=== PATIENT | female | born 1950 | race Caucasian/White ===

== ENCOUNTER → 2017-12-16 06:51 | Outpatient (CLI) | payer MEDICARE, SELFPAY ==
[2017-12-16 08:40] LABS: Add Manual Diff / Slide Review NO; Basophils Percent Auto 0.5 % (0-2); Eosinophils Percent Auto 1.3 % (2-4); Hematocrit 43.3 % (36-46); Lymphocytes Percent Auto 36.9 % (25-40); Mean Corpuscular HGB Conc 34.6 % (30-36); Mean Corpuscular Hemoglobin 32.6 PG (26-34); Mean Corpuscular Volume 94.3 fL (80-100); Monocytes Percent Auto 10.1 % (3-14); Neutrophils Absolute Auto 3100 /uL (3000-5900); Neutrophils Percent Auto 51.2 % (50-75); Platelet Count 250 X10^3/uL (150-400); Red Blood Cell Count 4.59 X10^6/uL (4.0-5.2); Red Cell Distribution Width 12.4 % (11.6-14.8)
[2017-12-16 08:59] LABS: Alanine Aminotransferase 51 IU/L (9-52); Albumin 4.7 g/dL (3.5-5.0); Albumin Globulin Ratio 1.6 (1.0-2.8); Alkaline Phosphatase 61 U/L (38-126); Aspartate Aminotransferase 40 IU/L (14-36); BUN Creatinine Ratio 28.6 (6-22); Blood Urea Nitrogen 20 mg/dL (7-17); Calcium 9.3 mg/dL (8.4-10.2); Carbon Dioxide 31 mmol/L (22-32); Chloride 95 mmol/L (98-107); Cholesterol 169 mg/dL (140-199); Estimated Glomerular Filt Rate > 60.0 mL/min (>60); Globulin 2.9 g/dL (1.7-4.1); Glucose 95 mg/dL (80-110); HDL Cholesterol 62 mg/dL (40-60); HEMOLYSIS 50 (0-50); LDL Cholesterol Calculated 83 mg/dL (<100); Potassium 4.6 mmol/L (3.4-5.1); Sodium 136 mmol/L (137-145); Total Protein 7.6 g/dL (6.3-8.2); Triglycerides 121 mg/dL (35-150)
[2017-12-16 09:36] LABS: Thyroid Stimulating Hormone 2.28 uIU/mL (0.47-4.68)
== END ==
PROVIDERS: Visit Provider Family Medicine
DX: E03.9 Hypothyroidism, unspecified (principal); E78.5 Hyperlipidemia, unspecified
CPT/HCPCS: 36415; 80053; 80061; 84443; 85025

== ENCOUNTER → 2018-05-12 13:36 | Outpatient (CLI) | payer MEDICARE, SELFPAY ==
--- NOTE | 2018-05-12 | DI.MG.S_ITS ---
BILATERAL DIGITAL SCREENING MAMMOGRAM 3D/2D WITH CAD WITH AUGMENTATION: 05/12/2018 CLINICAL: Routine screening. Family history of breast cancer. Comparison is made to exams dated: 01/07/2017 mammogram, 01/04/2016 mammogram, and 07/15/2014 mammogram - [facility]. The tissue of both breasts is heterogeneously dense. This may lower the sensitivity of mammography. Current study was also evaluated with a Computer Aided Detection (CAD) system. Bilateral breast implants are stable. There are benign calcifications in both breasts. No significant masses, calcifications, or other findings are seen in either breast. There has been no significant interval change. IMPRESSION: There is no mammographic evidence of malignancy. A 1 year screening mammogram is recommended. This exam was interpreted at Station ID: [id number]. NOTE: For mammograms, a report in lay terms will be sent to the patient. Approximately 15% of breast malignancies will not be visualized mammographically. In the management of a palpable breast mass, a negative mammogram must not discourage biopsy of a clinically suspicious lesion. Electronically Signed By: Dann andrews/grecia:05/12/2018 18:18:15 letter sent: Normal Exam ACR BI-RADS Category 2: Benign Finding(s) 3342F
== END ==
PROVIDERS: Visit Provider Family Medicine
DX: Z12.31 Encounter for screening mammogram for malignant neoplasm of breast (principal); Z80.3 Family history of malignant neoplasm of breast
CPT/HCPCS: 77063; 77067

== ENCOUNTER → 2018-07-14 14:52 | Outpatient (CLI) | payer MEDICARE, SELFPAY ==
--- NOTE | 2018-07-14 14:54 | DI.RAD.S_ITS ---
PROCEDURE: XR KNEE RT 3V INDICATIONS: pain in right knee TECHNIQUE: 3 views of the knee were acquired. COMPARISON: None. FINDINGS: Bones: No fractures or dislocations. No suspicious bony lesions. Soft tissues: No joint effusion. No suspicious soft tissue calcifications. IMPRESSION: No acute radiographic findings. If there is continued pain, followup exam or additional imaging such as MRI or CT could be performed for further assessment. Dictated by: Janki Patel M.D. on 07/14/2018 at 15:52 Approved by: Janki Patel M.D. on 07/14/2018 at 15:52
== END ==
PROVIDERS: PCP Family Medicine; Visit Provider Family Medicine
DX: M25.561 Pain in right knee (principal)
CPT/HCPCS: 73562

== ENCOUNTER 2018-10-07 09:45 | Outpatient (RCR) | payer MEDICARE, SELFPAY ==
--- NOTE | 2018-08-13 10:03 | PT.OIE ---
Current Diagnoses Pain in right knee (08/12/18) Past Medical History (Last Reviewed 07/14/18 @ 13:59 by Kasey Valnetin LPN) Hypertension (Chronic) Hypothyroidism (Chronic ~2012) Osteopenia (Chronic) Chicken pox (Resolved ~1950) Measles (Resolved ~1949) Mumps (Resolved ~1949) Rubella (Resolved ~1949) Past Surgical History (Last Reviewed 07/14/18 @ 13:59 by Kasey Valentin LPN) Anesthesia (Resolved) History of breast augmentation (~02/2011) History of breast augmentation (~06/2012) Status post appendectomy Status post tubal ligation (~1977) Provider Visit Care Team Role Provider Type Giovanni Bustos MD Attending Provider Physician Primary Care Provider Specialty: Family Practice Address: [address] [place] [address] Email: [email or web address] Physical Therapy Initial Evaluation PT-OP-A Visit Information Start: 08/12/18 17:06 Freq: Status: Active Protocol: Document 08/12/18 12:00 (Rec: 08/12/18 17:14 [email or web address]) Out-Patient Physical Therapy Visit Information Visit Information Visit Type Initial Evaluation Visit Start Time 12:00 Visit Stop Time 12:50 Total Visit Minutes 50 Visit Number 1 Number of WELDER JOURNEYMAN Visits 0 Evaluation Information Evaluation Date 08/12/18 PT-OP-B Current Condition Start: 08/12/18 17:06 Freq: Status: Active Protocol: Document 08/12/18 12:00 (Rec: 08/12/18 17:14 [email or web address]) Current Condition History of Current Condition Onset Date 08/12/18 Current Complaints R knee pain, difficulty in walking and hiking, difficulty in turns History of Current Condition Pt c/o new onset of R knee pain couple months ago. Pt describes pain as dull and achy at the medial posterior aspect of R knee. Pt states she had significant increased in R knee pain after she went to hiking in [place] in June. Pt had trouble sleeping that night and her pain was very severe that she went to see her PCP on the following week. X-ray showed -ve findings but did not perform MRI. Pain tends to get worse with trunk and hip rotational movements, going up and down hills and walking uneven surface. Pt denies pain during walking straight line. Prior Treatments and Tests N/A Future Testing and Treatments Planned possible MRI Treatment Goals Patient/Caregiver Goals 1. to be able to hike again without pain 2. to be able to walk >2 miles without knee pain Prior Functional Status Baseline Function- ADL's Independent Baseline Function- Mobility Independent Current Functional Impairments (Reported) Functional Limitations- ADL's slow rotational activities during to pain Functional Limitations- Recreation/ Unale to hike due to knee pain Hobbies Personal Factors Other Personal Factors That May Effect osteopenia Therapy/Recovery PT-OP-C Subjective Start: 08/12/18 17:06 Freq: Status: Active Protocol: Document 08/12/18 12:00 HH (Rec: 08/13/18 09:32 [email or web address]) OP-PT Subjective Patient Comments Patient Comments My pain has been getting better but hiking and turnings make it worse. Patient Questionnaires Lower Extremity Functional Scale LEFS Score 65 LEFS Impairment 1 to 19% Impaired (Score 63-79 ) PT-OP-F Manual Assessment Start: 08/12/18 17:06 Freq: Status: Active Protocol: Document 08/12/18 12:00 HH (Rec: 08/13/18 09:32 [email or web address]) Manual Assessments Soft Tissue Assessment Soft Tissue Mobility Assessment Significant tenderness at medial joint line at R knee, R distal medial HS PT-OP-G Mobility & Gait Start: 08/12/18 17:06 Freq: Status: Active Protocol: Document 08/12/18 12:00 HH (Rec: 08/13/18 09:32 [email or web address]) OP Gait Assessment Assistive Devices Assistive Device None Orthotic/Prosthetic Devices or Brace: No Gait Deviations General Gait Pattern Antalgic Factors Limiting Gait Function Factors Limiting Gait Function Pain Comments Gait Comments 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 Lack of R TKE and heel strike during stance phase. PT-OP-J Posture/Palpation/Skin Start: 08/12/18 17:06 Freq: Status: Active Protocol: Document 08/12/18 12:00 HH (Rec: 08/13/18 09:32 [email or web address]) Posture Evaluation Position Standing Weight Distribution Weight Shifted Left Decreased Wt.Bear on (R) Knee Posture (R) Ext. Tibial Torsion (R) Excess Flexion Patellar Posture (R) Laterally Tilted Ankle/Foot Posture (R) Supinated (R) Calcaneal Inversion (R) Forefoot Eversion Foot Arch (R) High Arch (L) Medium Arch PT-OP-K Range of Motion Start: 08/12/18 17:06 Freq: Status: Active Protocol: Document 08/12/18 12:00 (Rec: 08/13/18 09:32 [email or web address]) Knee Goniometric Range of Motion Knee Measured in Degrees Right Knee ROM WFL Yes Patient Position Supine Flexion Active (degrees) 135 Extension Active (degrees) 2 Left Knee ROM WFL Yes Patient Position Supine Flexion Active (degrees) 135 Extension Active (degrees) 0 Knee ROM Limitations Knee ROM Limitations Soft Tissue Tightness Pain Comments R knee lack of full TKE. active ext = -2 from from full extension PT-OP-L Special Tests Start: 08/12/18 17:06 Freq: Status: Active Protocol: Document 08/12/18 12:00 (Rec: 08/13/18 09:32 [email or web address]) Special Tests Knee Special Tests Varus- 0 Degrees Test Results -ve Valgus- 0 Degrees Test Results -ve Apley's Compression Test Results +VE Comments with tibial external rotation on R knee Katerina Test Test Results +VE Comments with tibial external rotation on R knee Posterior Draw Test Results -ve Anterior Draw Test Results -ve PT-OP-M Strength Start: 08/12/18 17:06 Freq: Status: Active Protocol: Document 08/12/18 12:00 HH (Rec: 08/13/18 09:32 [email or web address]) Hip Strength Hip Manual Muscle Testing Right Flexion (L2) 4+ Good+ Extension (S1) 4+ Good+ Abduction 4 Good Adduction 4+ Good+ Left Flexion (L2) 5 Normal Extension (S1) 5 Normal Abduction 5 Normal Adduction 5 Normal Knee Strength Knee Manual Muscle Testing Right Flexion (S2) 4+ Good+ Extension (L3) 4+ Good+ Left Flexion (S2) 5 Normal Extension (L3) 5 Normal PT-OP-Q Treatments Start: 08/12/18 17:06 Freq: Status: Active Protocol: Document 08/12/18 12:00 HH (Rec: 08/13/18 09:32 [email or web address]) Therapeutic Exercises Supine Exercises lateral HS stretch Side right Equipment Used green band Comments 90 hip flexion and R foot turn in Standing Exercises hip ER Side bilateral Equipment Used green band Comments foot neutral pointing forward, Hip ER Manual Therapy Treatment Soft Tissue Mobilization medial R knee joint line Body Location medial joint line Mobilization Type Cross-Friction Strumming Sustained Pressure Intensity/Depth Moderate Body Position Hooklying lateral HS Body Location R lateral HS Mobilization Type Cross-Friction Strumming Sustained Pressure Intensity/Depth Moderate Body Position Hooklying Joint Mobilizations R tibial IR Joint R tibialfemoral joint Grade III Body Position Supine PT-OP-T Assessment and Plan Start: 08/12/18 17:06 Freq: Status: Active Protocol: Document 08/12/18 12:00 HH (Rec: 08/13/18 09:32 HH [email or web address]) Physical Therapy Assessment Rehab Potential Rehabilitation Potential Good Evaluation Complexity Number of Personal Factors/Comorbidities 1-2 Number of Body Systems Impaired 1-2 Clinical Presentation at Evaluation Stable Impairments Impairments Functional Activities Gait Pain Posture ROM Soft Tissue Mobility Strength Other Concerns Barriers to Rehabilitation possible R medial meniscal tear Goals HEP Impairment pt does not have a HEP Moderate Needs Teacher Goal (LTG) comply to HEP independently with proper techniques and increase her postural awareness (reduce R tibial IR and R foot rim turning machine operator). LTG Duration 8 weeks ROM Impairment decreased R knee extension Moderate Needs Teacher Goal (LTG) To reach R full active knee extension to 0degree during heel strike/ static standing posture LTG Duration 12 weeks LEFS score Impairment lowered LEFS Detention Goal (LTG) to reach 0% impairments on LEFS and able to return to walking 2miles a day/ running once a week LTG Duration 12 weeks pain Impairment increased pain during walking and hiking Short Term Goal (STG) reduce R knee pain by 2 points during walking and hiking STG Duration 6 weeks Detention Goal (LTG) to be pain free during walking and hiking, and return to running LTG Duration 12 weeks Assessment Summary Assessment Pt is a very pleasant 68 yo female presented to clinic with new onset of R knee pain with unknown cause. x-ray showed negative results. Upon assessment, pain reproduced from [facility] test and apley compression test primarily during R tibial internal rotation. Significant tenderness at medial joint line along with distal medial HS. Pt also demonstrated R supinated foot (high arch) and rim turning machine operator at static standing, along with lack of knee extension and increased weight shift to L side of the body. Pt presents possible minor medial meniscal damage on R knee/ degenarative OA changes. Today's tx focused on postural education, R lateral HS stretch, hip ER with neutral tib and foot. Pt will benefit from skilled therapy to address aforementioned impairments by postural training, Quad and gluteal strengthening, increasing foot and tibial mobility and return to sports training. Physical Therapy Plan Frequency and Duration Frequency of Treatment 2x/Week Duration of Treatment 3 months Plan of Care Start Date 08/12/18 Plan of Care End Date 08/12/18 Therapeutic Interventions Therapeutic Interventions Aquatic Therapy Gait Training Home Exercise Program Joint Mobilizations Manual Therapy Neuromuscular Re-education Patient/Caregiver Education Self-Care/Home Management Soft Tissue Mobilization Taping Therapeutic Activities Therapeutic Exercises Modalities Cold Pack/Ice Massage Electric Stimulation Hot Packs Next Visit Focus/Plan Next Note Type Treatment Note Next Visit Plan Review HEP manual therapy (tibial IR, HS stretch, foot mobility) quad strengthening NMES if needed. gait training with heel strike
--- NOTE | 2018-08-13 10:04 | PT.OPPOC ---
Addendum entered and electronically signed by Miranda Ruiz, PT 08/21/18 17:47: incorrect POC end date Original Note: Current Diagnoses Pain in right knee (08/12/18) Provider Visit Care Team Role Provider Type Giovanni Bustos MD Attending Provider Physician Primary Care Provider Specialty: Family Practice Address: [address] [place] [address], [id number] Email: [email or web address] Plan Of Care PT-OP-T Assessment and Plan Start: 08/12/18 17:06 Freq: Status: Active Protocol: Document 08/12/18 12:00 HH (Rec: 08/13/18 09:32 HH [email or web address]) Physical Therapy Assessment Rehab Potential Rehabilitation Potential Good Evaluation Complexity Number of Personal Factors/Comorbidities 1-2 Number of Body Systems Impaired 1-2 Clinical Presentation at Evaluation Stable Impairments Impairments Functional Activities Gait Pain Posture ROM Soft Tissue Mobility Strength Other Concerns Barriers to Rehabilitation possible R medial meniscal tear Goals HEP Impairment pt does not have a HEP Shelter Goal (LTG) comply to HEP independently with proper techniques and increase her postural awareness (reduce R tibial IR and R foot flange turner). LTG Duration 8 weeks ROM Impairment decreased R knee extension Shelter Goal (LTG) To reach R full active knee extension to 0degree during heel strike/ static standing posture LTG Duration 12 weeks LEFS score Impairment lowered LEFS Rail Transportation Tabeler Goal (LTG) to reach 0% impairments on LEFS and able to return to walking 2miles a day/ running once a week LTG Duration 12 weeks pain Impairment increased pain during walking and hiking Short Term Goal (STG) reduce R knee pain by 2 points during walking and hiking STG Duration 6 weeks Rail Transportation Tabeler Goal (LTG) to be pain free during walking and hiking, and return to running LTG Duration 12 weeks Assessment Summary Assessment Pt is a very pleasant 68 yo female presented to clinic with new onset of R knee pain with unknown cause. x-ray showed negative results. Upon assessment, pain reproduced from [facility] test and apley compression test primarily during R tibial internal rotation. Significant tenderness at medial joint line along with distal medial HS. Pt also demonstrated R supinated foot (high arch) and flange turner at static standing, along with lack of knee extension and increased weight shift to L side of the body. Pt presents possible minor medial meniscal damage on R knee/ degenarative OA changes. Today's tx focused on postural education, R lateral HS stretch, hip ER with neutral tib and foot. Pt will benefit from skilled therapy to address aforementioned impairements by postural training, Quad and gluteal strengthening, increasing foot and tibial mobility and return to sports training. Physical Therapy Plan Frequency and Duration Frequency of Treatment 2x/Week Duration of Treatment 3 months Plan of Care Start Date 08/12/18 Plan of Care End Date 08/12/18 Therapeutic Interventions Therapeutic Interventions Aquatic Therapy Gait Training Home Exercise Program Joint Mobilizations Manual Therapy Neuromuscular Re-education Patient/Caregiver Education Self-Care/Home Management Soft Tissue Mobilization Taping Therapeutic Activities Therapeutic Exercises Modalities Cold Pack/Ice Massage Electric Stimulation Hot Packs Next Visit Focus/Plan Next Note Type Treatment Note Next Visit Plan Review HEP manual therapy (tibial IR, HS stretch, foot mobility) quad strengthening NMES if needed. gait training with heel strike Plan of Care Dates Plan of Care Start Date 08/12/18 Plan of Care End Date 08/12/18 Please Sign and Return: I have reviewed this Plan of Care and certify that the skilled therapy services above are required to meet the patient?s needs. Physician Signature Date Printed Name and Credentials Clinical Instructor Signature Printed Name and Credentials
--- NOTE | 2018-08-13 10:05 | PT.OPPOC ---
*Live* [facility] Alice Mauricio [facility] : 1950 [id number] 08/13/18 10:04 - PT OP Plan of Care Note by Miranda Ruiz PT Acct Num: [id number] : 1950 Patient Age: 68 Addendum entered and electronically signed by Miranda Ruiz PT 08/21/18 17:47: incorrect POC end date Original Note: Current Diagnoses Pain in right knee (08/12/18) Provider Visit Care Team Role Provider Type Giovanni Bustos MD Attending Provider Physician Primary Care Provider Specialty: Family Practice Address: [address] [place] [address] Email: [email or web address] Plan Of Care PT-OP-T Assessment and Plan Start: 08/12/18 17:06 Freq: Status: Active Protocol: Document 08/12/18 12:00 (Rec: 08/13/18 09:32 [email or web address]) Physical Therapy Assessment Rehab Potential Rehabilitation Potential Good Evaluation Complexity Number of Personal Factors/Comorbidities 1-2 Number of Body Systems Impaired 1-2 Clinical Presentation at Evaluation Stable Impairments Impairments Functional Activities Gait Pain Posture ROM Soft Tissue Mobility Strength Other Concerns Barriers to Rehabilitation possible R medial meniscal tear Goals HEP Impairment pt does not have a HEP Installer Apprentice Goal (LTG) comply to HEP independently with proper techniques and increase her postural awareness (reduce R tibial IR and R foot apple turner). LTG Duration 8 weeks ROM Impairment decreased R knee extension Installer Apprentice Goal (LTG) To reach R full active knee extension to 0degree during heel strike/ static standing posture LTG Duration 12 weeks LEFS score Impairment lowered LEFS Installer Apprentice Goal (LTG) to reach 0% impairments on LEFS and able to return to walking 2miles a day/ running once a week LTG Duration 12 weeks pain Impairment increased pain during walking and hiking Short Term Goal (STG) reduce R knee pain by 2 points during walking and hiking STG Duration 6 weeks Installer Apprentice Goal (LTG) to be pain free during walking and hiking, and return to running LTG Duration 12 weeks Assessment Summary Assessment Pt is a very pleasant 68 yo female presented to clinic with new onset of R knee pain with unknown cause. x-ray showed negative results. Upon assessment, pain reproduced from [facility] test and apley compression test primarily during R tibial internal rotation. Significant tenderness at medial joint line along with distal medial HS. Pt also demonstrated R supinated foot (high arch) and apple turner at static standing, along with lack of knee extension and increased weight shift to L side of the body. Pt presents possible minor medial meniscal damage on R knee/ degenarative OA changes. Today's tx focused on postural education, R lateral HS stretch, hip ER with neutral tib and foot. Pt will benefit from skilled therapy to address aforementioned impairements by postural training, Quad and gluteal strengthening, increasing foot and tibial mobility and return to sports training. Physical Therapy Plan Frequency and Duration Frequency of Treatment 2x/Week Duration of Treatment 3 months Plan of Care Start Date 08/12/18 Plan of Care End Date 08/12/18 Therapeutic Interventions Therapeutic Interventions Aquatic Therapy Gait Training Home Exercise Program Joint Mobilizations Manual Therapy Neuromuscular Re-education Patient/Caregiver Education Self-Care/Home Management Soft Tissue Mobilization Taping Therapeutic Activities Therapeutic Exercises Modalities Cold Pack/Ice Massage Electric Stimulation Hot Packs Next Visit Focus/Plan Next Note Type Treatment Note Next Visit Plan Review HEP manual therapy (tibial IR, HS stretch, foot mobility) quad strengthening NMES if needed. gait training with heel strike Plan of Care Dates Plan of Care Start Date 08/12/18 Plan of Care End Date 10/12/18 Please Sign and Return: I have reviewed this Plan of Care and certify that the skilled therapy services above are required to meet the patient?s needs. Physician Signature Date Printed Name and Credentials Clinical Instructor Signature Printed Name and Credentials Initialized on 08/13/18 10:04 - END OF NOTE
--- NOTE | 2018-08-19 13:20 | PT.OTN ---
Current Diagnoses Pain in right knee (08/19/18) Physical Therapy Treatment Note PT-OP-A Visit Information Start: 08/12/18 17:06 Freq: Status: Active Protocol: Document 08/19/18 11:15 HH (Rec: 08/19/18 13:20 [email or web address]) Out-Patient Physical Therapy Visit Information Visit Information Visit Type Treatment Note Visit Start Time 11:15 Visit Stop Time 12:05 Total Visit Minutes 50 Visit Number 2 Number of ASSISTED LIVING COORDINATOR Visits 0 PT-OP-B Current Condition Start: 08/12/18 17:06 Freq: Status: Active Protocol: Document 08/12/18 12:00 HH (Rec: 08/12/18 17:14 [email or web address]) Current Condition History of Current Condition Onset Date 08/12/18 Current Complaints R knee pain, difficulty in walking and hiking, difficulty in turns History of Current Condition Pt c/o new onset of R knee pain couple months ago. Pt describes pain as dull and achy at the medial posterior aspect of R knee. Pt states she had significant increased in R knee pain after she went to hiking in [place] in June. Pt had trouble sleeping that night and her pain was very severe that she went to see her PCP on the following week. X-ray showed -ve findings but did not perform MRI. Pain tends to get worse with trunk and hip rotational movements, going up and down hills and walking uneven surface. Pt denies pain during walking straight line. Prior Treatments and Tests N/A Future Testing and Treatments Planned possible MRI Treatment Goals Patient/Caregiver Goals 1. to be able to hike again without pain 2. to be able to walk >2 miles without knee pain Prior Functional Status Baseline Function- ADL's Independent Baseline Function- Mobility Independent Current Functional Impairments (Reported) Functional Limitations- ADL's slow rotational activities during to pain Functional Limitations- Recreation/ Un[place] to hike due to knee pain Hobbies Personal Factors Other Personal Factors That May Effect osteopenia Therapy/Recovery PT-OP-C Subjective Start: 08/12/18 17:06 Freq: Status: Active Protocol: Document 08/19/18 11:15 HH (Rec: 08/19/18 13:20 [email or web address]) OP-PT Subjective Patient Comments Patient Comments I've been doing my ex and aware of my foot position. I havent had any pain so far. Patient Reported Progress Improving PT-OP-F Manual Assessment Start: 08/12/18 17:06 Freq: Status: Active Protocol: Document 08/12/18 12:00 HH (Rec: 08/13/18 09:32 [email or web address]) Manual Assessments Soft Tissue Assessment Soft Tissue Mobility Assessment Significant tenderness at medial joint line at R knee, R distal medial HS PT-OP-G Mobility & Gait Start: 08/12/18 17:06 Freq: Status: Active Protocol: Document 08/12/18 12:00 HH (Rec: 08/13/18 09:32 [email or web address]) OP Gait Assessment Assistive Devices Assistive Device None Orthotic/Prosthetic Devices or Brace: No Gait Deviations General Gait Pattern Antalgic Factors Limiting Gait Function Factors Limiting Gait Function Pain Comments Gait Comments 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 Lack of R TKE and heel strike during stance phase. PT-OP-J Posture/Palpation/Skin Start: 08/12/18 17:06 Freq: Status: Active Protocol: Document 08/12/18 12:00 (Rec: 08/13/18 09:32 [email or web address]) Posture Evaluation Position Standing Weight Distribution Weight Shifted Left Decreased Wt.Bear on (R) Knee Posture (R) Ext. Tibial Torsion (R) Excess Flexion Patellar Posture (R) Laterally Tilted Ankle/Foot Posture (R) Supinated (R) Calcaneal Inversion (R) Forefoot Eversion Foot Arch (R) High Arch (L) Medium Arch PT-OP-K Range of Motion Start: 08/12/18 17:06 Freq: Status: Active Protocol: Document 08/12/18 12:00 HH (Rec: 08/13/18 09:32 [email or web address]) Knee Goniometric Range of Motion Knee Measured in Degrees Right Knee ROM WFL Yes Patient Position Supine Flexion Active (degrees) 135 Extension Active (degrees) 2 Left Knee ROM WFL Yes Patient Position Supine Flexion Active (degrees) 135 Extension Active (degrees) 0 Knee ROM Limitations Knee ROM Limitations Soft Tissue Tightness Pain Comments R knee lack of full TKE. active ext = -2 from from full extension PT-OP-L Special Tests Start: 08/12/18 17:06 Freq: Status: Active Protocol: Document 08/12/18 12:00 HH (Rec: 08/13/18 09:32 [email or web address]) Special Tests Knee Special Tests Varus- 0 Degrees Test Results -ve Valgus- 0 Degrees Test Results -ve Apley's Compression Test Results +VE Comments with tibial external rotation on R knee Katerina Test Test Results +VE Comments with tibial external rotation on R knee Posterior Draw Test Results -ve Anterior Draw Test Results -ve PT-OP-M Strength Start: 08/12/18 17:06 Freq: Status: Active Protocol: Document 08/12/18 12:00 HH (Rec: 08/13/18 09:32 [email or web address]) Hip Strength Hip Manual Muscle Testing Right Flexion (L2) 4+ Good+ Extension (S1) 4+ Good+ Abduction 4 Good Adduction 4+ Good+ Left Flexion (L2) 5 Normal Extension (S1) 5 Normal Abduction 5 Normal Adduction 5 Normal Knee Strength Knee Manual Muscle Testing Right Flexion (S2) 4+ Good+ Extension (L3) 4+ Good+ Left Flexion (S2) 5 Normal Extension (L3) 5 Normal PT-OP-Q Treatments Start: 08/12/18 17:06 Freq: Status: Active Protocol: Document 08/19/18 11:15 HH (Rec: 08/19/18 13:20 [email or web address]) Therapeutic Exercises Supine Exercises lateral HS stretch Side right Equipment Used green band Comments 90 hip flexion and R foot turn in Sitting Exercises hip ER and IR Side bilateral Reps/Minutes 20 x2 Comments neutral feet with hip ER and IR Standing Exercises single leg stance hip ER Side right Reps/Minutes 10 x3 Comments neutral R foot (not moving) with hip ER hip ER Side bilateral Equipment Used green band Reps/Minutes 10 x3 Comments foot neutral pointing forward, Hip ER Manual Therapy Treatment Soft Tissue Mobilization R ant tib and calf Mobilization Type Cross-Friction Sustained Pressure Trigger Point Release Intensity/Depth Moderate Body Position Supine Comments along with ankle passive PF,DF INV medial R knee joint line Body Location medial joint line Mobilization Type Cross-Friction Strumming Sustained Pressure Intensity/Depth Moderate Body Position Hooklying lateral HS Body Location R lateral HS Mobilization Type Cross-Friction Strumming Sustained Pressure Intensity/Depth Moderate Body Position Hooklying Joint Mobilizations R ankle pronation Joint talocural and calcaneal Grade IV Body Position Sitting Comments with tibial IR R tibial IR Joint R tibialfemoral joint Grade III Body Position Sitting PT-OP-T Assessment and Plan Start: 08/12/18 17:06 Freq: Status: Active Protocol: Document 08/19/18 11:15 HH (Rec: 08/19/18 13:20 HH [email or web address]) Physical Therapy Assessment Assessment Summary Assessment Pt presents reduced knee pain and denies knee pain during rotational movements today. pt cont presents high arch on R foot with R tibal ER and hip ER. Education on resting posture. Today tx focused on R foot pronation, tibial IR, hip IR and overall ankle mobility. Physical Therapy Plan Next Visit Focus/Plan Next Note Type Treatment Note Next Visit Plan Review HEP manual therapy (tibial IR, HS stretch, foot mobility) foot pronation mobility quad strengthening (TKE) NMES if needed. gait training with heel strike
--- NOTE | 2018-08-21 17:57 | PT.OTN ---
Addendum entered and electronically signed by Miranda Ruiz PT 08/21/18 18:13: incorrect visit time Original Note: Current Diagnoses Pain in right knee (08/21/18) Physical Therapy Treatment Note PT-OP-A Visit Information Start: 08/12/18 17:06 Freq: Status: Active Protocol: Document 08/21/18 14:30 HH (Rec: 08/21/18 17:57 HH [email or web address]) Out-Patient Physical Therapy Visit Information Visit Information Visit Type Treatment Note Visit Start Time 14:30 Visit Stop Time 15:15 Total Visit Minutes 45 Visit Number 3 Number of SUPERVISOR [employer] Visits 0 PT-OP-B Current Condition Start: 08/12/18 17:06 Freq: Status: Active Protocol: Document 08/12/18 12:00 HH (Rec: 08/12/18 17:14 HH [email or web address]) Current Condition History of Current Condition Onset Date 08/12/18 Current Complaints R knee pain, difficulty in walking and hiking, difficulty in turns History of Current Condition Pt c/o new onset of R knee pain couple months ago. Pt describes pain as dull and achy at the medial posterior aspect of R knee. Pt states she had significant increased in R knee pain after she went to hiking in [place] in June. Pt had trouble sleeping that night and her pain was very severe that she went to see her PCP on the following week. X-ray showed -ve findings but did not perform MRI. Pain tends to get worse with trunk and hip rotational movements, going up and down hills and walking uneven surface. Pt denies pain during walking straight line. Prior Treatments and Tests N/A Future Testing and Treatments Planned possible MRI Treatment Goals Patient/Caregiver Goals 1. to be able to hike again without pain 2. to be able to walk >2 miles without knee pain Prior Functional Status Baseline Function- ADL's Independent Baseline Function- Mobility Independent Current Functional Impairments (Reported) Functional Limitations- ADL's slow rotational activities during to pain Functional Limitations- Recreation/ [place] to hike due to knee pain Hobbies Personal Factors Other Personal Factors That May Effect osteopenia Therapy/Recovery PT-OP-C Subjective Start: 08/12/18 17:06 Freq: Status: Active Protocol: Document 08/21/18 14:30 HH (Rec: 08/21/18 17:57 HH [email or web address]) OP-PT Subjective Patient Comments Patient Comments I walked 2 miles today and climbed some stairs so my knee is kind of sore but didnt hurt. I've been doing my HEP and turning doesnt hurt as much now. PT-OP-F Manual Assessment Start: 08/12/18 17:06 Freq: Status: Active Protocol: Document 08/12/18 12:00 HH (Rec: 08/13/18 09:32 [email or web address]) Manual Assessments Soft Tissue Assessment Soft Tissue Mobility Assessment Significant tenderness at medial joint line at R knee, R distal medial HS PT-OP-G Mobility & Gait Start: 08/12/18 17:06 Freq: Status: Active Protocol: Document 08/12/18 12:00 HH (Rec: 08/13/18 09:32 [email or web address]) OP Gait Assessment Assistive Devices Assistive Device None Orthotic/Prosthetic Devices or Brace: No Gait Deviations General Gait Pattern Antalgic Factors Limiting Gait Function Factors Limiting Gait Function Pain Comments Gait Comments 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 Lack of R TKE and heel strike during stance phase. PT-OP-J Posture/Palpation/Skin Start: 08/12/18 17:06 Freq: Status: Active Protocol: Document 08/12/18 12:00 HH (Rec: 08/13/18 09:32 [email or web address]) Posture Evaluation Position Standing Weight Distribution Weight Shifted Left Decreased Wt.Bear on (R) Knee Posture (R) Ext. Tibial Torsion (R) Excess Flexion Patellar Posture (R) Laterally Tilted Ankle/Foot Posture (R) Supinated (R) Calcaneal Inversion (R) Forefoot Eversion Foot Arch (R) High Arch (L) Medium Arch PT-OP-K Range of Motion Start: 08/12/18 17:06 Freq: Status: Active Protocol: Document 08/12/18 12:00 HH (Rec: 08/13/18 09:32 [email or web address]) Knee Goniometric Range of Motion Knee Measured in Degrees Right Knee ROM WFL Yes Patient Position Supine Flexion Active (degrees) 135 Extension Active (degrees) 2 Left Knee ROM WFL Yes Patient Position Supine Flexion Active (degrees) 135 Extension Active (degrees) 0 Knee ROM Limitations Knee ROM Limitations Soft Tissue Tightness Pain Comments R knee lack of full TKE. active ext = -2 from from full extension PT-OP-L Special Tests Start: 08/12/18 17:06 Freq: Status: Active Protocol: Document 08/12/18 12:00 HH (Rec: 08/13/18 09:32 [email or web address]) Special Tests Knee Special Tests Varus- 0 Degrees Test Results -ve Valgus- 0 Degrees Test Results -ve Apley's Compression Test Results +VE Comments with tibial external rotation on R knee Katerina Test Test Results +VE Comments with tibial external rotation on R knee Posterior Draw Test Results -ve Anterior Draw Test Results -ve PT-OP-M Strength Start: 08/12/18 17:06 Freq: Status: Active Protocol: Document 08/12/18 12:00 HH (Rec: 08/13/18 09:32 [email or web address]) Hip Strength Hip Manual Muscle Testing Right Flexion (L2) 4+ Good+ Extension (S1) 4+ Good+ Abduction 4 Good Adduction 4+ Good+ Left Flexion (L2) 5 Normal Extension (S1) 5 Normal Abduction 5 Normal Adduction 5 Normal Knee Strength Knee Manual Muscle Testing Right Flexion (S2) 4+ Good+ Extension (L3) 4+ Good+ Left Flexion (S2) 5 Normal Extension (L3) 5 Normal PT-OP-Q Treatments Start: 08/12/18 17:06 Freq: Status: Active Protocol: Document 08/21/18 14:30 HH (Rec: 08/21/18 17:57 HH [email or web address]) Therapeutic Exercises Supine Exercises lateral HS stretch Side right Equipment Used green band Comments 90 hip flexion and R foot turn in Sitting Exercises hip ER and IR Side bilateral Reps/Minutes 20 x2 Comments neutral feet with hip ER and IR Standing Exercises standing TKE Side right Equipment Used level 6 band Reps/Minutes 20 x 2 RDL Side right Reps/Minutes 10 secs x 10 Comments with neutral foot and knee, slight hip and knee bent single leg stance hip ER Side right Reps/Minutes 10 x3 Comments neutral R foot (not moving) with hip ER Manual Therapy Treatment Soft Tissue Mobilization R ant tib and calf Mobilization Type Cross-Friction Sustained Pressure Trigger Point Release Intensity/Depth Moderate Body Position Supine Comments along with ankle passive PF,DF INV medial R knee joint line Body Location medial joint line Mobilization Type Cross-Friction Strumming Sustained Pressure Intensity/Depth Moderate Body Position Hooklying lateral HS Body Location R lateral HS Mobilization Type Cross-Friction Strumming Sustained Pressure Intensity/Depth Moderate Body Position Hooklying Neuro Re-Education Treatment Balance Activities RDL with cone reach Details cone reach on table Reps/Duration 10 x 2 Comments single leg stance with knee and hip bent , neutral foot and knee to reach for cone on table PT-OP-T Assessment and Plan Start: 08/12/18 17:06 Freq: Status: Active Protocol: Document 08/21/18 14:30 HH (Rec: 08/21/18 17:57 HH [email or web address]) Physical Therapy Assessment Assessment Summary Assessment tenderness noted on R medial calf and post tib. Pt's R foot position is still inverted at rest possibly due to weakness from peroneals/tightness on invertors. RDL added to HEP to improve ankle and knee stability. Physical Therapy Plan Next Visit Focus/Plan Next Note Type Treatment Note Next Visit Plan Review HEP (RDL) manual therapy (tibial IR, HS stretch, foot mobility) foot pronation mobility quad strengthening (TKE) single leg stability and strengthening
--- NOTE | 2018-08-21 18:14 | PT.OTN ---
Current Diagnoses Pain in right knee (08/21/18) Physical Therapy Treatment Note PT-OP-A Visit Information Start: 08/12/18 17:06 Freq: Status: Active Protocol: Document 08/21/18 15:15 HH (Rec: 08/21/18 17:57 [email or web address]) Out-Patient Physical Therapy Visit Information Visit Information Visit Type Treatment Note Visit Start Time 15:15 Visit Stop Time 16:00 Total Visit Minutes 45 Visit Number 3 Number of GAS WELL PUMPER Visits 0 PT-OP-B Current Condition Start: 08/12/18 17:06 Freq: Status: Active Protocol: Document 08/12/18 12:00 HH (Rec: 08/12/18 17:14 [email or web address]) Current Condition History of Current Condition Onset Date 08/12/18 Current Complaints R knee pain, difficulty in walking and hiking, difficulty in turns History of Current Condition Pt c/o new onset of R knee pain couple months ago. Pt describes pain as dull and achy at the medial posterior aspect of R knee. Pt states she had significant increased in R knee pain after she went to hiking in [place] in June. Pt had trouble sleeping that night and her pain was very severe that she went to see her PCP on the following week. X-ray showed -ve findings but did not perform MRI. Pain tends to get worse with trunk and hip rotational movements, going up and down hills and walking uneven surface. Pt denies pain during walking straight line. Prior Treatments and Tests N/A Future Testing and Treatments Planned possible MRI Treatment Goals Patient/Caregiver Goals 1. to be able to hike again without pain 2. to be able to walk >2 miles without knee pain Prior Functional Status Baseline Function- ADL's Independent Baseline Function- Mobility Independent Current Functional Impairments (Reported) Functional Limitations- ADL's slow rotational activities during to pain Functional Limitations- Recreation/ [place] to hike due to knee pain Hobbies Personal Factors Other Personal Factors That May Effect osteopenia Therapy/Recovery PT-OP-C Subjective Start: 08/12/18 17:06 Freq: Status: Active Protocol: Document 08/21/18 15:15 HH (Rec: 08/21/18 17:57 [email or web address]) OP-PT Subjective Patient Comments Patient Comments I walked 2 miles today and climbed some stairs so my knee is kind of sore but didnt hurt. I've been doing my HEP and turning doesnt hurt as much now. PT-OP-F Manual Assessment Start: 08/12/18 17:06 Freq: Status: Active Protocol: Document 08/12/18 12:00 HH (Rec: 08/13/18 09:32 [email or web address]) Manual Assessments Soft Tissue Assessment Soft Tissue Mobility Assessment Significant tenderness at medial joint line at R knee, R distal medial HS PT-OP-G Mobility & Gait Start: 08/12/18 17:06 Freq: Status: Active Protocol: Document 08/12/18 12:00 HH (Rec: 08/13/18 09:32 [email or web address]) OP Gait Assessment Assistive Devices Assistive Device None Orthotic/Prosthetic Devices or Brace: No Gait Deviations General Gait Pattern Antalgic Factors Limiting Gait Function Factors Limiting Gait Function Pain Comments Gait Comments 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 Lack of R TKE and heel strike during stance phase. PT-OP-J Posture/Palpation/Skin Start: 08/12/18 17:06 Freq: Status: Active Protocol: Document 08/12/18 12:00 (Rec: 08/13/18 09:32 [email or web address]) Posture Evaluation Position Standing Weight Distribution Weight Shifted Left Decreased Wt.Bear on (R) Knee Posture (R) Ext. Tibial Torsion (R) Excess Flexion Patellar Posture (R) Laterally Tilted Ankle/Foot Posture (R) Supinated (R) Calcaneal Inversion (R) Forefoot Eversion Foot Arch (R) High Arch (L) Medium Arch PT-OP-K Range of Motion Start: 08/12/18 17:06 Freq: Status: Active Protocol: Document 08/12/18 12:00 (Rec: 08/13/18 09:32 [email or web address]) Knee Goniometric Range of Motion Knee Measured in Degrees Right Knee ROM WFL Yes Patient Position Supine Flexion Active (degrees) 135 Extension Active (degrees) 2 Left Knee ROM WFL Yes Patient Position Supine Flexion Active (degrees) 135 Extension Active (degrees) 0 Knee ROM Limitations Knee ROM Limitations Soft Tissue Tightness Pain Comments R knee lack of full TKE. active ext = -2 from from full extension PT-OP-L Special Tests Start: 08/12/18 17:06 Freq: Status: Active Protocol: Document 08/12/18 12:00 HH (Rec: 08/13/18 09:32 [email or web address]) Special Tests Knee Special Tests Varus- 0 Degrees Test Results -ve Valgus- 0 Degrees Test Results -ve Apley's Compression Test Results +VE Comments with tibial external rotation on R knee Katerina Test Test Results +VE Comments with tibial external rotation on R knee Posterior Draw Test Results -ve Anterior Draw Test Results -ve PT-OP-M Strength Start: 08/12/18 17:06 Freq: Status: Active Protocol: Document 08/12/18 12:00 HH (Rec: 08/13/18 09:32 HH [email or web address]) Hip Strength Hip Manual Muscle Testing Right Flexion (L2) 4+ Good+ Extension (S1) 4+ Good+ Abduction 4 Good Adduction 4+ Good+ Left Flexion (L2) 5 Normal Extension (S1) 5 Normal Abduction 5 Normal Adduction 5 Normal Knee Strength Knee Manual Muscle Testing Right Flexion (S2) 4+ Good+ Extension (L3) 4+ Good+ Left Flexion (S2) 5 Normal Extension (L3) 5 Normal PT-OP-Q Treatments Start: 08/12/18 17:06 Freq: Status: Active Protocol: Document 08/21/18 15:15 HH (Rec: 08/21/18 17:57 HH [email or web address]) Therapeutic Exercises Supine Exercises lateral HS stretch Side right Equipment Used green band Comments 90 hip flexion and R foot turn in Sitting Exercises hip ER and IR Side bilateral Reps/Minutes 20 x2 Comments neutral feet with hip ER and IR Standing Exercises standing TKE Side right Equipment Used level 6 band Reps/Minutes 20 x 2 RDL Side right Reps/Minutes 10 secs x 10 Comments with neutral foot and knee, slight hip and knee bent single leg stance hip ER Side right Reps/Minutes 10 x3 Comments neutral R foot (not moving) with hip ER Manual Therapy Treatment Soft Tissue Mobilization R ant tib and calf Mobilization Type Cross-Friction Sustained Pressure Trigger Point Release Intensity/Depth Moderate Body Position Supine Comments along with ankle passive PF,DF INV medial R knee joint line Body Location medial joint line Mobilization Type Cross-Friction Strumming Sustained Pressure Intensity/Depth Moderate Body Position Hooklying lateral HS Body Location R lateral HS Mobilization Type Cross-Friction Strumming Sustained Pressure Intensity/Depth Moderate Body Position Hooklying Neuro Re-Education Treatment Balance Activities RDL with cone reach Details cone reach on table Reps/Duration 10 x 2 Comments single leg stance with knee and hip bent , neutral foot and knee to reach for cone on table PT-OP-T Assessment and Plan Start: 08/12/18 17:06 Freq: Status: Active Protocol: Document 08/21/18 15:15 HH (Rec: 08/21/18 17:57 HH [email or web address]) Physical Therapy Assessment Assessment Summary Assessment tenderness noted on R medial calf and post tib. Pt's R foot position is still inverted at rest possibly due to weakness from peroneals/tightness on invertors. RDL added to HEP to improve ankle and knee stability. Physical Therapy Plan Next Visit Focus/Plan Next Note Type Treatment Note Next Visit Plan Review HEP (RDL) manual therapy (tibial IR, HS stretch, foot mobility) foot pronation mobility quad strengthening (TKE) single leg stability and strengthening
--- NOTE | 2018-08-26 16:06 | PT.OTN ---
Current Diagnoses Pain in right knee (08/26/18) Physical Therapy Treatment Note PT-OP-A Visit Information Start: 08/12/18 17:06 Freq: Status: Active Protocol: Document 08/26/18 11:15 GGD (Rec: 08/26/18 16:05 GGD [email or web address]) Out-Patient Physical Therapy Visit Information Visit Information Visit Type Treatment Note Visit Start Time 11:15 Visit Stop Time 12:00 Total Visit Minutes 45 Visit Number 4 Number of METALSMITH APPRENTICE Visits 1 Evaluation Information Evaluation Date 08/12/18 PT-OP-B Current Condition Start: 08/12/18 17:06 Freq: Status: Active Protocol: Document 08/12/18 12:00 HH (Rec: 08/12/18 17:14 HH [email or web address]) Current Condition History of Current Condition Onset Date 08/12/18 Current Complaints R knee pain, difficulty in walking and hiking, difficulty in turns History of Current Condition Pt c/o new onset of R knee pain couple months ago. Pt describes pain as dull and achy at the medial posterior aspect of R knee. Pt states she had significant increased in R knee pain after she went to [employer] in [place] in June. Pt had trouble sleeping that night and her pain was very severe that she went to see her PCP on the following week. X-ray showed -ve findings but did not perform MRI. Pain tends to get worse with trunk and hip rotational movements, going up and down hills and walking uneven surface. Pt denies pain during walking straight line. Prior Treatments and Tests N/A Future Testing and Treatments Planned possible MRI Treatment Goals Patient/Caregiver Goals 1. to be able to hike again without pain 2. to be able to walk >2 miles without knee pain Prior Functional Status Baseline Function- ADL's Independent Baseline Function- Mobility Independent Current Functional Impairments (Reported) Functional Limitations- ADL's slow rotational activities during to pain Functional Limitations- Recreation/ Unale to hike due to knee pain Hobbies Personal Factors Other Personal Factors That May Effect osteopenia Therapy/Recovery PT-OP-C Subjective Start: 08/12/18 17:06 Freq: Status: Active Protocol: Document 08/26/18 11:15 GGD (Rec: 08/26/18 16:05 GGD [email or web address]) OP-PT Subjective Patient Comments Patient Comments Pt states that her knee is feeling better. PT-OP-F Manual Assessment Start: 08/12/18 17:06 Freq: Status: Active Protocol: Document 08/12/18 12:00 HH (Rec: 08/13/18 09:32 [email or web address]) Manual Assessments Soft Tissue Assessment Soft Tissue Mobility Assessment Significant tenderness at medial joint line at R knee, R distal medial HS PT-OP-G Mobility & Gait Start: 08/12/18 17:06 Freq: Status: Active Protocol: Document 08/12/18 12:00 HH (Rec: 08/13/18 09:32 [email or web address]) OP Gait Assessment Assistive Devices Assistive Device None Orthotic/Prosthetic Devices or Brace: No Gait Deviations General Gait Pattern Antalgic Factors Limiting Gait Function Factors Limiting Gait Function Pain Comments Gait Comments Pt presents R knee and foot route re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 Lack of R TKE and heel strike during stance phase. PT-OP-J Posture/Palpation/Skin Start: 08/12/18 17:06 Freq: Status: Active Protocol: Document 08/12/18 12:00 (Rec: 08/13/18 09:32 [email or web address]) Posture Evaluation Position Standing Weight Distribution Weight Shifted Left Decreased Wt.Bear on (R) Knee Posture (R) Ext. Tibial Torsion (R) Excess Flexion Patellar Posture (R) Laterally Tilted Ankle/Foot Posture (R) Supinated (R) Calcaneal Inversion (R) Forefoot Eversion Foot Arch (R) High Arch (L) Medium Arch PT-OP-K Range of Motion Start: 08/12/18 17:06 Freq: Status: Active Protocol: Document 08/12/18 12:00 HH (Rec: 08/13/18 09:32 [email or web address]) Knee Goniometric Range of Motion Knee Measured in Degrees Right Knee ROM WFL Yes Patient Position Supine Flexion Active (degrees) 135 Extension Active (degrees) 2 Left Knee ROM WFL Yes Patient Position Supine Flexion Active (degrees) 135 Extension Active (degrees) 0 Knee ROM Limitations Knee ROM Limitations Soft Tissue Tightness Pain Comments R knee lack of full TKE. active ext = -2 from from full extension PT-OP-L Special Tests Start: 08/12/18 17:06 Freq: Status: Active Protocol: Document 08/12/18 12:00 HH (Rec: 08/13/18 09:32 [email or web address]) Special Tests Knee Special Tests Varus- 0 Degrees Test Results -ve Valgus- 0 Degrees Test Results -ve Apley's Compression Test Results +VE Comments with tibial external rotation on R knee Katerina Test Test Results +VE Comments with tibial external rotation on R knee Posterior Draw Test Results -ve Anterior Draw Test Results -ve PT-OP-M Strength Start: 08/12/18 17:06 Freq: Status: Active Protocol: Document 08/12/18 12:00 (Rec: 08/13/18 09:32 [email or web address]) Hip Strength Hip Manual Muscle Testing Right Flexion (L2) 4+ Good+ Extension (S1) 4+ Good+ Abduction 4 Good Adduction 4+ Good+ Left Flexion (L2) 5 Normal Extension (S1) 5 Normal Abduction 5 Normal Adduction 5 Normal Knee Strength Knee Manual Muscle Testing Right Flexion (S2) 4+ Good+ Extension (L3) 4+ Good+ Left Flexion (S2) 5 Normal Extension (L3) 5 Normal PT-OP-Q Treatments Start: 08/12/18 17:06 Freq: Status: Active Protocol: Document 08/26/18 11:15 GGD (Rec: 08/26/18 16:05 GGD [email or web address]) Therapeutic Exercises Supine Exercises lateral HS stretch Side right Equipment Used green band Comments 90 hip flexion and R foot turn in Sitting Exercises hip ER and IR Side bilateral Reps/Minutes 20 x2 Comments neutral feet with hip ER and IR Standing Exercises standing TKE Side right Equipment Used level 6 band Reps/Minutes 20 x 2 RDL Side right Reps/Minutes 10 secs x 10 Comments with neutral foot and knee, slight hip and knee bent single leg stance hip ER Side right Reps/Minutes 10 x3 Comments neutral R foot (not moving) with hip ER Manual Therapy Treatment Soft Tissue Mobilization R ant tib and calf Mobilization Type Cross-Friction Sustained Pressure Trigger Point Release Intensity/Depth Moderate Body Position Supine Comments along with ankle passive PF,DF INV medial R knee joint line Body Location medial joint line Mobilization Type Cross-Friction Strumming Sustained Pressure Intensity/Depth Moderate Body Position Hooklying lateral HS Body Location R lateral HS Mobilization Type Cross-Friction Strumming Sustained Pressure Intensity/Depth Moderate Body Position Hooklying Joint Mobilizations R tibial IR Joint R tibialfemoral joint Grade III Body Position Sitting PT-OP-T Assessment and Plan Start: 08/12/18 17:06 Freq: Status: Active Protocol: Document 08/26/18 11:15 GGD (Rec: 08/26/18 16:05 [email or web address]) Physical Therapy Assessment Goals HEP Impairment pt does not have a HEP [employer] Goal (LTG) comply to HEP independently with proper techniques and increase her postural awareness (reduce R tibial IR and R foot route returner). LTG Duration 8 weeks ROM Impairment decreased R knee extension [employer] Goal (LTG) To reach R full active knee extension to 0degree during heel strike/ static standing posture LTG Duration 12 weeks LEFS score Impairment lowered LEFS [employer] Goal (LTG) to reach 0% impairments on LEFS and able to return to walking 2miles a day/ running once a week LTG Duration 12 weeks pain Impairment increased pain during walking and hiking Short Term Goal (STG) reduce R knee pain by 2 points during walking and hiking STG Duration 6 weeks Mcfp Goal (LTG) to be pain free during walking and hiking, and return to running LTG Duration 12 weeks Assessment Summary Assessment Pt is improving with mobility and pain control. She had improve knee ROM. She was challenged with SLS balance. Physical Therapy Plan Frequency and Duration Frequency of Treatment 2x/Week Duration of Treatment 3 months Plan of Care Start Date 08/12/18 Plan of Care End Date 10/12/18 Next Visit Focus/Plan Next Note Type Treatment Note Next Visit Plan Review HEP (RDL) manual therapy (tibial IR, HS stretch, foot mobility) foot pronation mobility quad strengthening (TKE) single leg stability and strengthening
--- NOTE | 2018-08-28 14:30 | PT.OTN ---
Current Diagnoses Pain in right knee (08/28/18) Physical Therapy Treatment Note PT-OP-A Visit Information Start: 08/12/18 17:06 Freq: Status: Active Protocol: Document 08/28/18 14:30 HH (Rec: 08/28/18 15:59 [email or web address]) Out-Patient Physical Therapy Visit Information Visit Information Visit Type Treatment Note Visit Start Time 14:30 Visit Stop Time 15:15 Total Visit Minutes 45 Visit Number 5 Number of INTEGRATION CONSULTANT Visits 0 PT-OP-B Current Condition Start: 08/12/18 17:06 Freq: Status: Active Protocol: Document 08/12/18 12:00 HH (Rec: 08/12/18 17:14 HH [email or web address]) Current Condition History of Current Condition Onset Date 08/12/18 Current Complaints R knee pain, difficulty in walking and hiking, difficulty in turns History of Current Condition Pt c/o new onset of R knee pain couple months ago. Pt describes pain as dull and achy at the medial posterior aspect of R knee. Pt states she had significant increased in R knee pain after she went to hiking in [place] in June. Pt had trouble sleeping that night and her pain was very severe that she went to see her PCP on the following week. X-ray showed -ve findings but did not perform MRI. Pain tends to get worse with trunk and hip rotational movements, going up and down hills and walking uneven surface. Pt denies pain during walking straight line. Prior Treatments and Tests N/A Future Testing and Treatments Planned possible MRI Treatment Goals Patient/Caregiver Goals 1. to be able to hike again without pain 2. to be able to walk >2 miles without knee pain Prior Functional Status Baseline Function- ADL's Independent Baseline Function- Mobility Independent Current Functional Impairments (Reported) Functional Limitations- ADL's slow rotational activities during to pain Functional Limitations- Recreation/ [place] to hike due to knee pain Hobbies Personal Factors Other Personal Factors That May Effect osteopenia Therapy/Recovery PT-OP-C Subjective Start: 08/12/18 17:06 Freq: Status: Active Protocol: Document 08/28/18 14:30 HH (Rec: 08/28/18 15:59 HH [email or web address]) OP-PT Subjective Patient Comments Patient Comments pt stated im feeling much better. havent noticed any knee pain recently. im very aware of my gait and posture. Im doing all my HEP as well. PT-OP-F Manual Assessment Start: 08/12/18 17:06 Freq: Status: Active Protocol: Document 08/12/18 12:00 HH (Rec: 08/13/18 09:32 [email or web address]) Manual Assessments Soft Tissue Assessment Soft Tissue Mobility Assessment Significant tenderness at medial joint line at R knee, R distal medial HS PT-OP-G Mobility & Gait Start: 08/12/18 17:06 Freq: Status: Active Protocol: Document 08/12/18 12:00 HH (Rec: 08/13/18 09:32 [email or web address]) OP Gait Assessment Assistive Devices Assistive Device None Orthotic/Prosthetic Devices or Brace: No Gait Deviations General Gait Pattern Antalgic Factors Limiting Gait Function Factors Limiting Gait Function Pain Comments Gait Comments Pt presents R knee and foot bar 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 Lack of R TKE and heel strike during stance phase. PT-OP-J Posture/Palpation/Skin Start: 08/12/18 17:06 Freq: Status: Active Protocol: Document 08/12/18 12:00 HH (Rec: 08/13/18 09:32 [email or web address]) Posture Evaluation Position Standing Weight Distribution Weight Shifted Left Decreased Wt.Bear on (R) Knee Posture (R) Ext. Tibial Torsion (R) Excess Flexion Patellar Posture (R) Laterally Tilted Ankle/Foot Posture (R) Supinated (R) Calcaneal Inversion (R) Forefoot Eversion Foot Arch (R) High Arch (L) Medium Arch PT-OP-K Range of Motion Start: 08/12/18 17:06 Freq: Status: Active Protocol: Document 08/12/18 12:00 HH (Rec: 08/13/18 09:32 [email or web address]) Knee Goniometric Range of Motion Knee Measured in Degrees Right Knee ROM WFL Yes Patient Position Supine Flexion Active (degrees) 135 Extension Active (degrees) 2 Left Knee ROM WFL Yes Patient Position Supine Flexion Active (degrees) 135 Extension Active (degrees) 0 Knee ROM Limitations Knee ROM Limitations Soft Tissue Tightness Pain Comments R knee lack of full TKE. active ext = -2 from from full extension PT-OP-L Special Tests Start: 08/12/18 17:06 Freq: Status: Active Protocol: Document 08/12/18 12:00 HH (Rec: 08/13/18 09:32 [email or web address]) Special Tests Knee Special Tests Varus- 0 Degrees Test Results -ve Valgus- 0 Degrees Test Results -ve Apley's Compression Test Results +VE Comments with tibial external rotation on R knee Katerina Test Test Results +VE Comments with tibial external rotation on R knee Posterior Draw Test Results -ve Anterior Draw Test Results -ve PT-OP-M Strength Start: 08/12/18 17:06 Freq: Status: Active Protocol: Document 08/12/18 12:00 HH (Rec: 08/13/18 09:32 [email or web address]) Hip Strength Hip Manual Muscle Testing Right Flexion (L2) 4+ Good+ Extension (S1) 4+ Good+ Abduction 4 Good Adduction 4+ Good+ Left Flexion (L2) 5 Normal Extension (S1) 5 Normal Abduction 5 Normal Adduction 5 Normal Knee Strength Knee Manual Muscle Testing Right Flexion (S2) 4+ Good+ Extension (L3) 4+ Good+ Left Flexion (S2) 5 Normal Extension (L3) 5 Normal PT-OP-Q Treatments Start: 08/12/18 17:06 Freq: Status: Active Protocol: Document 08/28/18 14:30 HH (Rec: 08/28/18 15:59 [email or web address]) Therapeutic Exercises Supine Exercises lateral HS stretch Side right Equipment Used green band Comments 90 hip flexion and R foot turn in Standing Exercises single leg stance against wall Side bilateral Reps/Minutes 10secs hold x 5 Comments against wall laterally in athletic position. step up 5 inches Standing Exercise Name lateral step up and down Side bilateral Reps/Minutes 6 x 4 Comments focus on neutral hip, knee and foot alignment RDL Standing Exercise Name standing birddog Side bilateral Equipment Used PVC pipe Reps/Minutes 10 x 4 Comments down to mid miller. with neutral foot and knee, slight hip and knee bent single leg stance hip ER Side right Reps/Minutes 10 x3 Comments neutral R foot (not moving) with hip ER Manual Therapy Treatment Soft Tissue Mobilization R ant tib and calf Mobilization Type Cross-Friction Sustained Pressure Trigger Point Release Intensity/Depth Moderate Body Position Supine Comments along with ankle passive PF,DF INV medial R knee joint line Body Location medial joint line Mobilization Type Cross-Friction Strumming Sustained Pressure Intensity/Depth Moderate Body Position Hooklying Joint Mobilizations R tibial IR Joint R tibialfemoral joint Grade III Body Position Sitting PT-OP-T Assessment and Plan Start: 08/12/18 17:06 Freq: Status: Active Protocol: Document 08/28/18 14:30 HH (Rec: 08/28/18 15:59 HH [email or web address]) Physical Therapy Assessment Assessment Summary Assessment Pt cont to progress well without pain. Pt shows reduced tibial ER and foot abduction. progress to step up down ex and RDL with emphasis on neutral [id number] alignment with eccentric control. Recommended pt to bring running shoes next visit for running assessment. There noticeable harder impact/ heel strike on R LE , and reduced reciprocal armswings upon gait analysis on treadmill today. Physical Therapy Plan Next Visit Focus/Plan Next Note Type Treatment Note Next Visit Plan Review HEP (step up and down) manual therapy (tibial IR, HS stretch, foot mobility) foot pronation mobility running assessment quad strengthening (TKE) single leg stability and strengthening
--- NOTE | 2018-09-02 13:46 | PT.OTN ---
Current Diagnoses Pain in right knee (09/02/18) Physical Therapy Treatment Note PT-OP-A Visit Information Start: 08/12/18 17:06 Freq: Status: Active Protocol: Document 09/02/18 11:15 HH (Rec: 09/02/18 13:46 [email or web address]) Out-Patient Physical Therapy Visit Information Visit Information Visit Type Treatment Note Visit Start Time 11:15 Visit Stop Time 12:00 Total Visit Minutes 45 Visit Number 6 Number of NEUROLOGY EPILEPSY PHYSICIAN Visits 0 PT-OP-B Current Condition Start: 08/12/18 17:06 Freq: Status: Active Protocol: Document 08/12/18 12:00 HH (Rec: 08/12/18 17:14 [email or web address]) Current Condition History of Current Condition Onset Date 08/12/18 Current Complaints R knee pain, difficulty in walking and hiking, difficulty in turns History of Current Condition Pt c/o new onset of R knee pain couple months ago. Pt describes pain as dull and achy at the medial posterior aspect of R knee. Pt states she had significant increased in R knee pain after she went to hiking in [place] in June. Pt had trouble sleeping that night and her pain was very severe that she went to see her PCP on the following week. X-ray showed -ve findings but did not perform MRI. Pain tends to get worse with trunk and hip rotational movements, going up and down hills and walking uneven surface. Pt denies pain during walking straight line. Prior Treatments and Tests N/A Future Testing and Treatments Planned possible MRI Treatment Goals Patient/Caregiver Goals 1. to be able to hike again without pain 2. to be able to walk >2 miles without knee pain Prior Functional Status Baseline Function- ADL's Independent Baseline Function- Mobility Independent Current Functional Impairments (Reported) Functional Limitations- ADL's slow rotational activities during to pain Functional Limitations- Recreation/ [place] to hike due to knee pain Hobbies Personal Factors Other Personal Factors That May Effect osteopenia Therapy/Recovery PT-OP-C Subjective Start: 08/12/18 17:06 Freq: Status: Active Protocol: Document 09/02/18 11:15 HH (Rec: 09/02/18 13:46 [email or web address]) OP-PT Subjective Patient Comments Patient Comments Im doing good and turning is not a problem anymore. I've been working on going up and down stairs with neutral posture PT-OP-F Manual Assessment Start: 08/12/18 17:06 Freq: Status: Active Protocol: Document 08/12/18 12:00 HH (Rec: 08/13/18 09:32 [email or web address]) Manual Assessments Soft Tissue Assessment Soft Tissue Mobility Assessment Significant tenderness at medial joint line at R knee, R distal medial HS PT-OP-G Mobility & Gait Start: 08/12/18 17:06 Freq: Status: Active Protocol: Document 08/12/18 12:00 (Rec: 08/13/18 09:32 [email or web address]) OP Gait Assessment Assistive Devices Assistive Device None Orthotic/Prosthetic Devices or Brace: No Gait Deviations General Gait Pattern Antalgic Factors Limiting Gait Function Factors Limiting Gait Function Pain Comments Gait Comments Pt presents R knee and foot channel 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 Lack of R TKE and heel strike during stance phase. PT-OP-J Posture/Palpation/Skin Start: 08/12/18 17:06 Freq: Status: Active Protocol: Document 08/12/18 12:00 (Rec: 08/13/18 09:32 [email or web address]) Posture Evaluation Position Standing Weight Distribution Weight Shifted Left Decreased Wt.Bear on (R) Knee Posture (R) Ext. Tibial Torsion (R) Excess Flexion Patellar Posture (R) Laterally Tilted Ankle/Foot Posture (R) Supinated (R) Calcaneal Inversion (R) Forefoot Eversion Foot Arch (R) High Arch (L) Medium Arch PT-OP-K Range of Motion Start: 08/12/18 17:06 Freq: Status: Active Protocol: Document 08/12/18 12:00 (Rec: 08/13/18 09:32 [email or web address]) Knee Goniometric Range of Motion Knee Measured in Degrees Right Knee ROM WFL Yes Patient Position Supine Flexion Active (degrees) 135 Extension Active (degrees) 2 Left Knee ROM WFL Yes Patient Position Supine Flexion Active (degrees) 135 Extension Active (degrees) 0 Knee ROM Limitations Knee ROM Limitations Soft Tissue Tightness Pain Comments R knee lack of full TKE. active ext = -2 from from full extension PT-OP-L Special Tests Start: 08/12/18 17:06 Freq: Status: Active Protocol: Document 08/12/18 12:00 (Rec: 08/13/18 09:32 [email or web address]) Special Tests Knee Special Tests Varus- 0 Degrees Test Results -ve Valgus- 0 Degrees Test Results -ve Apley's Compression Test Results +VE Comments with tibial external rotation on R knee Katerina Test Test Results +VE Comments with tibial external rotation on R knee Posterior Draw Test Results -ve Anterior Draw Test Results -ve PT-OP-M Strength Start: 08/12/18 17:06 Freq: Status: Active Protocol: Document 08/12/18 12:00 HH (Rec: 08/13/18 09:32 [email or web address]) Hip Strength Hip Manual Muscle Testing Right Flexion (L2) 4+ Good+ Extension (S1) 4+ Good+ Abduction 4 Good Adduction 4+ Good+ Left Flexion (L2) 5 Normal Extension (S1) 5 Normal Abduction 5 Normal Adduction 5 Normal Knee Strength Knee Manual Muscle Testing Right Flexion (S2) 4+ Good+ Extension (L3) 4+ Good+ Left Flexion (S2) 5 Normal Extension (L3) 5 Normal PT-OP-Q Treatments Start: 08/12/18 17:06 Freq: Status: Active Protocol: Document 09/02/18 11:15 HH (Rec: 09/02/18 13:46 [email or web address]) Therapeutic Exercises Standing Exercises Running on treadmill Standing Exercise Name 12 mins Side bilateral Comments 4 mins at 4.0 lateral band walk Standing Exercise Name lateral walk Side bilateral Resistance green loop band Equipment Used green loop band Reps/Minutes 80 feet Comments band at forefoot monster walk Side bilateral Resistance green loop band Equipment Used green loop band Reps/Minutes 100 feet Comments band at knees standing TKE Side right Equipment Used level 6 band Reps/Minutes 20 x 2 hip ER Side bilateral Equipment Used green band Reps/Minutes 10 x3 Comments foot neutral pointing forward, Hip ER PT-OP-T Assessment and Plan Start: 08/12/18 17:06 Freq: Status: Active Protocol: Document 09/02/18 11:15 HH (Rec: 09/02/18 13:46 [email or web address]) Physical Therapy Assessment Assessment Summary Assessment Pt cont to progress well without pain. Focused on glut engagment today with monster walk and lateral walk with green band. Started running on treadmill today after 3 months. Pt was able to run upto 4.0 speed for 4 minutes. Pt denies pain and discomfort. Physical Therapy Plan Next Visit Focus/Plan Next Note Type Treatment Note Next Visit Plan Review HEP (step up and down) manual therapy (tibial IR, HS stretch, foot mobility) foot pronation mobility running program. 15 mins quad strengthening (TKE) single leg stability and strengthening
--- NOTE | 2018-09-04 17:11 | PT.OTN ---
Current Diagnoses Pain in right knee (09/04/18) Physical Therapy Treatment Note PT-OP-A Visit Information Start: 08/12/18 17:06 Freq: Status: Active Protocol: Document 09/04/18 15:15 HH (Rec: 09/04/18 17:10 [email or web address]) Out-Patient Physical Therapy Visit Information Visit Information Visit Type Treatment Note Visit Start Time 15:15 Visit Stop Time 16:00 Total Visit Minutes 45 Visit Number 7 Number of ENTRY SPECIALISTS Visits 0 PT-OP-B Current Condition Start: 08/12/18 17:06 Freq: Status: Active Protocol: Document 08/12/18 12:00 HH (Rec: 08/12/18 17:14 [email or web address]) Current Condition History of Current Condition Onset Date 08/12/18 Current Complaints R knee pain, difficulty in walking and hiking, difficulty in turns History of Current Condition Pt c/o new onset of R knee pain couple months ago. Pt describes pain as dull and achy at the medial posterior aspect of R knee. Pt states she had significant increased in R knee pain after she went to hiking in [place] in June. Pt had trouble sleeping that night and her pain was very severe that she went to see her PCP on the following week. X-ray showed -ve findings but did not perform MRI. Pain tends to get worse with trunk and hip rotational movements, going up and down hills and walking uneven surface. Pt denies pain during walking straight line. Prior Treatments and Tests N/A Future Testing and Treatments Planned possible MRI Treatment Goals Patient/Caregiver Goals 1. to be able to hike again without pain 2. to be able to walk >2 miles without knee pain Prior Functional Status Baseline Function- ADL's Independent Baseline Function- Mobility Independent Current Functional Impairments (Reported) Functional Limitations- ADL's slow rotational activities during to pain Functional Limitations- Recreation/ Unale to hike due to knee pain Hobbies Personal Factors Other Personal Factors That May Effect osteopenia Therapy/Recovery PT-OP-C Subjective Start: 08/12/18 17:06 Freq: Status: Active Protocol: Document 09/04/18 15:15 HH (Rec: 09/04/18 17:10 [email or web address]) OP-PT Subjective Patient Comments Patient Comments My inside knee feels a little sore after the run on Saturday and i did a 2.5 miles walk yesterday too. Going uphill and turning are good so far. PT-OP-F Manual Assessment Start: 08/12/18 17:06 Freq: Status: Active Protocol: Document 08/12/18 12:00 HH (Rec: 08/13/18 09:32 [email or web address]) Manual Assessments Soft Tissue Assessment Soft Tissue Mobility Assessment Significant tenderness at medial joint line at R knee, R distal medial HS PT-OP-G Mobility & Gait Start: 08/12/18 17:06 Freq: Status: Active Protocol: Document 08/12/18 12:00 HH (Rec: 08/13/18 09:32 [email or web address]) OP Gait Assessment Assistive Devices Assistive Device None Orthotic/Prosthetic Devices or Brace: No Gait Deviations General Gait Pattern Antalgic Factors Limiting Gait Function Factors Limiting Gait Function Pain Comments Gait Comments Pt 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 Lack of R TKE and heel strike during stance phase. PT-OP-J Posture/Palpation/Skin Start: 08/12/18 17:06 Freq: Status: Active Protocol: Document 08/12/18 12:00 HH (Rec: 08/13/18 09:32 [email or web address]) Posture Evaluation Position Standing Weight Distribution Weight Shifted Left Decreased Wt.Bear on (R) Knee Posture (R) Ext. Tibial Torsion (R) Excess Flexion Patellar Posture (R) Laterally Tilted Ankle/Foot Posture (R) Supinated (R) Calcaneal Inversion (R) Forefoot Eversion Foot Arch (R) High Arch (L) Medium Arch PT-OP-K Range of Motion Start: 08/12/18 17:06 Freq: Status: Active Protocol: Document 08/12/18 12:00 (Rec: 08/13/18 09:32 [email or web address]) Knee Goniometric Range of Motion Knee Measured in Degrees Right Knee ROM WFL Yes Patient Position Supine Flexion Active (degrees) 135 Extension Active (degrees) 2 Left Knee ROM WFL Yes Patient Position Supine Flexion Active (degrees) 135 Extension Active (degrees) 0 Knee ROM Limitations Knee ROM Limitations Soft Tissue Tightness Pain Comments R knee lack of full TKE. active ext = -2 from from full extension PT-OP-L Special Tests Start: 08/12/18 17:06 Freq: Status: Active Protocol: Document 08/12/18 12:00 HH (Rec: 08/13/18 09:32 [email or web address]) Special Tests Knee Special Tests Varus- 0 Degrees Test Results -ve Valgus- 0 Degrees Test Results -ve Apley's Compression Test Results +VE Comments with tibial external rotation on R knee Katerina Test Test Results +VE Comments with tibial external rotation on R knee Posterior Draw Test Results -ve Anterior Draw Test Results -ve PT-OP-M Strength Start: 08/12/18 17:06 Freq: Status: Active Protocol: Document 08/12/18 12:00 HH (Rec: 08/13/18 09:32 [email or web address]) Hip Strength Hip Manual Muscle Testing Right Flexion (L2) 4+ Good+ Extension (S1) 4+ Good+ Abduction 4 Good Adduction 4+ Good+ Left Flexion (L2) 5 Normal Extension (S1) 5 Normal Abduction 5 Normal Adduction 5 Normal Knee Strength Knee Manual Muscle Testing Right Flexion (S2) 4+ Good+ Extension (L3) 4+ Good+ Left Flexion (S2) 5 Normal Extension (L3) 5 Normal PT-OP-Q Treatments Start: 08/12/18 17:06 Freq: Status: Active Protocol: Document 09/04/18 15:15 HH (Rec: 09/04/18 17:10 [email or web address]) Therapeutic Exercises Standing Exercises RDD on foam with trunk rot Side bilateral Equipment Used 2 lbs weight ball Reps/Minutes 5 mins Comments with trunk rotation RDL on foam Side bilateral Equipment Used UE support as needed Reps/Minutes 5 mins bosu ball single leg stance Side bilateral Equipment Used UE support Reps/Minutes 5 mins lateral band walk Standing Exercise Name lateral walk Side bilateral Resistance green loop band Equipment Used green loop band Reps/Minutes 80 feet Comments band at forefoot monster walk Side bilateral Resistance green loop band Equipment Used green loop band Reps/Minutes 100 feet Comments band at knees single leg stance against wall Side bilateral Reps/Minutes 10secs hold x 5 Comments against wall laterally in athletic position. step up 5 inches Standing Exercise Name lateral step up and down Side bilateral Equipment Used 7 inches box Reps/Minutes 6 x 4 Comments focus on neutral hip, knee and foot alignment PT-OP-T Assessment and Plan Start: 08/12/18 17:06 Freq: Status: Active Protocol: Document 09/04/18 15:15 HH (Rec: 04/04/19 17:10 [email or web address]) Physical Therapy Assessment Assessment Summary Assessment Pt progress well overall. Today focued on single leg balance training static and dynamic. Pt denies pain/ discomfort and she is more aware of her R LE alignment. She also has improved pelvic stability during single leg step up and down. Physical Therapy Plan Next Visit Focus/Plan Next Note Type Treatment Note Next Visit Plan Review HEP (step up and down) manual therapy (tibial IR, HS stretch, foot mobility) foot pronation mobility running program. 15 mins quad strengthening (TKE) single leg stability and strengthening
--- NOTE | 2018-09-12 11:37 | PT.OTN ---
Current Diagnoses Pain in right knee (09/12/18) Physical Therapy Treatment Note PT-OP-A Visit Information Start: 08/12/18 17:06 Freq: Status: Active Protocol: Document 09/12/18 11:21 SA (Rec: 09/12/18 11:37 SA [email or web address]) Out-Patient Physical Therapy Visit Information Visit Information Visit Type Treatment Note Visit Start Time 08:15 Visit Stop Time 09:00 Total Visit Minutes 45 Visit Number 8 Number of RN MEDICATION Visits 1 PT-OP-B Current Condition Start: 08/12/18 17:06 Freq: Status: Active Protocol: Document 08/12/18 12:00 HH (Rec: 08/12/18 17:14 HH [email or web address]) Current Condition History of Current Condition Onset Date 08/12/18 Current Complaints R knee pain, difficulty in walking and hiking, difficulty in turns History of Current Condition Pt c/o new onset of R knee pain couple months ago. Pt describes pain as dull and achy at the medial posterior aspect of R knee. Pt states she had significant increased in R knee pain after she went to hiking in [place] in June. Pt had trouble sleeping that night and her pain was very severe that she went to see her PCP on the following week. X-ray showed -ve findings but did not perform MRI. Pain tends to get worse with trunk and hip rotational movements, going up and down hills and walking uneven surface. Pt denies pain during walking straight line. Prior Treatments and Tests N/A Future Testing and Treatments Planned possible MRI Treatment Goals Patient/Caregiver Goals 1. to be able to hike again without pain 2. to be able to walk >2 miles without knee pain Prior Functional Status Baseline Function- ADL's Independent Baseline Function- Mobility Independent Current Functional Impairments (Reported) Functional Limitations- ADL's slow rotational activities during to pain Functional Limitations- Recreation/ [place] to hike due to knee pain Hobbies Personal Factors Other Personal Factors That May Effect osteopenia Therapy/Recovery PT-OP-C Subjective Start: 08/12/18 17:06 Freq: Status: Active Protocol: Document 09/12/18 11:21 SA (Rec: 09/12/18 11:37 SA [email or web address]) OP-PT Subjective Patient Comments Patient Comments Knee feeling a little better today, tolerating Yoga 3x/week and feeling like R hip/knee getting stronger, balance still an issue. PT-OP-F Manual Assessment Start: 08/12/18 17:06 Freq: Status: Active Protocol: Document 08/12/18 12:00 HH (Rec: 08/13/18 09:32 [email or web address]) Manual Assessments Soft Tissue Assessment Soft Tissue Mobility Assessment Significant tenderness at medial joint line at R knee, R distal medial HS PT-OP-G Mobility & Gait Start: 08/12/18 17:06 Freq: Status: Active Protocol: Document 08/12/18 12:00 HH (Rec: 08/13/18 09:32 [email or web address]) OP Gait Assessment Assistive Devices Assistive Device None Orthotic/Prosthetic Devices or Brace: No Gait Deviations General Gait Pattern Antalgic Factors Limiting Gait Function Factors Limiting Gait Function Pain Comments Gait Comments 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 Lack of R TKE and heel strike during stance phase. PT-OP-J Posture/Palpation/Skin Start: 08/12/18 17:06 Freq: Status: Active Protocol: Document 08/12/18 12:00 (Rec: 08/13/18 09:32 [email or web address]) Posture Evaluation Position Standing Weight Distribution Weight Shifted Left Decreased Wt.Bear on (R) Knee Posture (R) Ext. Tibial Torsion (R) Excess Flexion Patellar Posture (R) Laterally Tilted Ankle/Foot Posture (R) Supinated (R) Calcaneal Inversion (R) Forefoot Eversion Foot Arch (R) High Arch (L) Medium Arch PT-OP-K Range of Motion Start: 08/12/18 17:06 Freq: Status: Active Protocol: Document 08/12/18 12:00 HH (Rec: 08/13/18 09:32 [email or web address]) Knee Goniometric Range of Motion Knee Measured in Degrees Right Knee ROM WFL Yes Patient Position Supine Flexion Active (degrees) 135 Extension Active (degrees) 2 Left Knee ROM WFL Yes Patient Position Supine Flexion Active (degrees) 135 Extension Active (degrees) 0 Knee ROM Limitations Knee ROM Limitations Soft Tissue Tightness Pain Comments R knee lack of full TKE. active ext = -2 from from full extension PT-OP-L Special Tests Start: 08/12/18 17:06 Freq: Status: Active Protocol: Document 08/12/18 12:00 HH (Rec: 08/13/18 09:32 [email or web address]) Special Tests Knee Special Tests Varus- 0 Degrees Test Results -ve Valgus- 0 Degrees Test Results -ve Apley's Compression Test Results +VE Comments with tibial external rotation on R knee Katerina Test Test Results +VE Comments with tibial external rotation on R knee Posterior Draw Test Results -ve Anterior Draw Test Results -ve PT-OP-M Strength Start: 08/12/18 17:06 Freq: Status: Active Protocol: Document 08/12/18 12:00 HH (Rec: 08/13/18 09:32 [email or web address]) Hip Strength Hip Manual Muscle Testing Right Flexion (L2) 4+ Good+ Extension (S1) 4+ Good+ Abduction 4 Good Adduction 4+ Good+ Left Flexion (L2) 5 Normal Extension (S1) 5 Normal Abduction 5 Normal Adduction 5 Normal Knee Strength Knee Manual Muscle Testing Right Flexion (S2) 4+ Good+ Extension (L3) 4+ Good+ Left Flexion (S2) 5 Normal Extension (L3) 5 Normal PT-OP-Q Treatments Start: 08/12/18 17:06 Freq: Status: Active Protocol: Document 09/12/18 11:21 SA (Rec: 09/12/18 11:37 SA [email or web address]) Cardio Equipment Recumbent Elliptical ([employer]) Duration (Minutes) 6 Resistance 7 Other Pt did not have running shoes for TM Therapeutic Exercises Supine Exercises lateral HS stretch Side bilateral Equipment Used green band Comments 90 hip flexion and R foot turn in Standing Exercises Lunge walk Side bilateral Reps/Minutes 4 lengths of bar Comments Focus on alignment RDD on foam with trunk rot Side bilateral Equipment Used 2 lbs weight ball Reps/Minutes 5 mins Comments with trunk rotation RDL on foam Side bilateral Equipment Used UE support as needed Reps/Minutes 5 mins bosu ball single leg stance Side bilateral Equipment Used UE support Reps/Minutes 3 min lateral band walk Resistance green loop band Reps/Minutes 80 feet Comments band at forefoot monster walk Side bilateral Resistance green loop band Reps/Minutes 100 feet Comments band at knees single leg stance against wall Side bilateral Reps/Minutes 10secs hold x 5 Comments against wall laterally in athletic position. step up 5 inches Standing Exercise Name lateral step up and down Side bilateral Equipment Used 7 inches box Reps/Minutes 6 x 4 Comments focus on neutral hip, knee and foot alignment hip ER Side bilateral Equipment Used green band Reps/Minutes 10 x3 Comments foot neutral pointing forward, Hip ER Neuro Re-Education Treatment Balance Activities Squats on balance pods Reps/Duration 10x Comments core engagement SL mini squat Details at bar Surface level Reps/Duration 10x Comments focus on form PT-OP-T Assessment and Plan Start: 08/12/18 17:06 Freq: Status: Active Protocol: Document 09/12/18 11:21 SA (Rec: 09/12/18 11:37 SA [email or web address]) Physical Therapy Assessment Assessment Summary Assessment Pt tolerating balance and LE strengthening progressions well, consistent with HEP wit step up/down focus and decreasing knee symptoms. Physical Therapy Plan Next Visit Focus/Plan Next Note Type Treatment Note Next Visit Plan Review HEP (step up and down) manual therapy (tibial IR, HS stretch, foot mobility) foot pronation mobility running program. 15 mins quad strengthening (TKE) single leg stability and strengthening
--- NOTE | 2018-09-16 15:21 | PT.OTN ---
Current Diagnoses Pain in right knee (09/16/18) Physical Therapy Treatment Note PT-OP-A Visit Information Start: 08/12/18 17:06 Freq: Status: Active Protocol: Document 09/16/18 15:11 SA (Rec: 09/16/18 15:21 SA [email or web address]) Out-Patient Physical Therapy Visit Information Visit Information Visit Type Treatment Note Visit Start Time 13:50 Visit Stop Time 14:33 Total Visit Minutes 43 Visit Number 9 Number of VP OF TECHNOLOGY Visits 2 PT-OP-B Current Condition Start: 08/12/18 17:06 Freq: Status: Active Protocol: Document 08/12/18 12:00 HH (Rec: 08/12/18 17:14 HH [email or web address]) Current Condition History of Current Condition Onset Date 08/12/18 Current Complaints R knee pain, difficulty in walking and hiking, difficulty in turns History of Current Condition Pt c/o new onset of R knee pain couple months ago. Pt describes pain as dull and achy at the medial posterior aspect of R knee. Pt states she had significant increased in R knee pain after she went to hiking in [place] in June. Pt had trouble sleeping that night and her pain was very severe that she went to see her PCP on the following week. X-ray showed -ve findings but did not perform MRI. Pain tends to get worse with trunk and hip rotational movements, going up and down hills and walking uneven surface. Pt denies pain during walking straight line. Prior Treatments and Tests N/A Future Testing and Treatments Planned possible MRI Treatment Goals Patient/Caregiver Goals 1. to be able to hike again without pain 2. to be able to walk >2 miles without knee pain Prior Functional Status Baseline Function- ADL's Independent Baseline Function- Mobility Independent Current Functional Impairments (Reported) Functional Limitations- ADL's slow rotational activities during to pain Functional Limitations- Recreation/ [place] to hike due to knee pain Hobbies Personal Factors Other Personal Factors That May Effect osteopenia Therapy/Recovery PT-OP-C Subjective Start: 08/12/18 17:06 Freq: Status: Active Protocol: Document 09/16/18 15:11 SA (Rec: 09/16/18 15:21 SA [email or web address]) OP-PT Subjective Patient Comments Patient Comments Pt reports feeling really good , limited occurances of knee pain with good tolerance of HEP and Yoga classes. PT-OP-F Manual Assessment Start: 08/12/18 17:06 Freq: Status: Active Protocol: Document 08/12/18 12:00 HH (Rec: 08/13/18 09:32 [email or web address]) Manual Assessments Soft Tissue Assessment Soft Tissue Mobility Assessment Significant tenderness at medial joint line at R knee, R distal medial HS PT-OP-G Mobility & Gait Start: 08/12/18 17:06 Freq: Status: Active Protocol: Document 08/12/18 12:00 HH (Rec: 08/13/18 09:32 [email or web address]) OP Gait Assessment Assistive Devices Assistive Device None Orthotic/Prosthetic Devices or Brace: No Gait Deviations General Gait Pattern Antalgic Factors Limiting Gait Function Factors Limiting Gait Function Pain Comments Gait Comments 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 Lack of R TKE and heel strike during stance phase. PT-OP-J Posture/Palpation/Skin Start: 08/12/18 17:06 Freq: Status: Active Protocol: Document 08/12/18 12:00 (Rec: 08/13/18 09:32 [email or web address]) Posture Evaluation Position Standing Weight Distribution Weight Shifted Left Decreased Wt.Bear on (R) Knee Posture (R) Ext. Tibial Torsion (R) Excess Flexion Patellar Posture (R) Laterally Tilted Ankle/Foot Posture (R) Supinated (R) Calcaneal Inversion (R) Forefoot Eversion Foot Arch (R) High Arch (L) Medium Arch PT-OP-K Range of Motion Start: 08/12/18 17:06 Freq: Status: Active Protocol: Document 08/12/18 12:00 (Rec: 08/13/18 09:32 [email or web address]) Knee Goniometric Range of Motion Knee Measured in Degrees Right Knee ROM WFL Yes Patient Position Supine Flexion Active (degrees) 135 Extension Active (degrees) 2 Left Knee ROM WFL Yes Patient Position Supine Flexion Active (degrees) 135 Extension Active (degrees) 0 Knee ROM Limitations Knee ROM Limitations Soft Tissue Tightness Pain Comments R knee lack of full TKE. active ext = -2 from from full extension PT-OP-L Special Tests Start: 08/12/18 17:06 Freq: Status: Active Protocol: Document 08/12/18 12:00 (Rec: 08/13/18 09:32 [email or web address]) Special Tests Knee Special Tests Varus- 0 Degrees Test Results -ve Valgus- 0 Degrees Test Results -ve Apley's Compression Test Results +VE Comments with tibial external rotation on R knee Katerina Test Test Results +VE Comments with tibial external rotation on R knee Posterior Draw Test Results -ve Anterior Draw Test Results -ve PT-OP-M Strength Start: 08/12/18 17:06 Freq: Status: Active Protocol: Document 08/12/18 12:00 (Rec: 08/13/18 09:32 [email or web address]) Hip Strength Hip Manual Muscle Testing Right Flexion (L2) 4+ Good+ Extension (S1) 4+ Good+ Abduction 4 Good Adduction 4+ Good+ Left Flexion (L2) 5 Normal Extension (S1) 5 Normal Abduction 5 Normal Adduction 5 Normal Knee Strength Knee Manual Muscle Testing Right Flexion (S2) 4+ Good+ Extension (L3) 4+ Good+ Left Flexion (S2) 5 Normal Extension (L3) 5 Normal PT-OP-Q Treatments Start: 08/12/18 17:06 Freq: Status: Active Protocol: Document 09/16/18 15:11 SA (Rec: 09/16/18 15:21 SA [email or web address]) Cardio Equipment Elliptical Duration (Minutes) 6 Resistance 4 Therapeutic Exercises Supine Exercises lateral HS stretch Side bilateral Equipment Used green band Comments 90 hip flexion and R foot turn in Prone Exercises Quad stretch Side bilateral Equipment Used TB Reps/Minutes 30 x 2 each Standing Exercises Lunge walk Side bilateral Reps/Minutes 2 lengths of bar Comments Focus on alignment RDD on foam with trunk rot Side bilateral Equipment Used 2 lbs weight ball Reps/Minutes 5 mins Comments with trunk rotation RDL on foam Side bilateral Equipment Used UE support as needed Reps/Minutes 5 mins bosu ball single leg stance Side bilateral Equipment Used UE support Reps/Minutes 3 min lateral band walk Resistance green loop band Reps/Minutes 80 feet Comments band at forefoot monster walk Side bilateral Resistance green loop band Reps/Minutes 100 feet Comments band at knees single leg stance against wall Side bilateral Reps/Minutes 10 x 5 each hip ER Side bilateral Equipment Used green band Reps/Minutes 10 x3 Comments foot neutral pointing forward, Hip ER Other Exercises hip EXT Side bilateral Resistance GRN TB Reps/Minutes 15x Comments foot position/control hip ABD Side bilateral Equipment Used GRN TB Reps/Minutes 15 x Comments focus on foot position/slow movement Neuro Re-Education Treatment Balance Activities Obstacle course Details balance pods, tilt board Surface step overs Reps/Duration 6 lengths Comments simulation of forest hike, cues for core engagement Squats on balance pods Reps/Duration 10x Comments core engagement SL mini squat Details at bar Surface level Reps/Duration 10x PT-OP-T Assessment and Plan Start: 08/12/18 17:06 Freq: Status: Active Protocol: Document 09/16/18 15:11 SA (Rec: 09/16/18 15:21 SA [email or web address]) Physical Therapy Assessment Progress Towards Goals Progress Towards Goals Progressing Toward Goals Assessment Summary Assessment Pt tolerating dynamic balance and LE strengthening ther ex well, plans to go on hike this week to challenge knee stability on uneven terrain. Physical Therapy Plan Next Visit Focus/Plan Next Note Type Treatment Note Next Visit Plan Follow up with tolerance of hike, progress HEP and balance /strengthening program to begin running outside of clinic .
--- NOTE | 2018-09-19 11:22 | PT.OTN ---
Current Diagnoses Pain in right knee (09/19/18) Physical Therapy Treatment Note PT-OP-A Visit Information Start: 08/12/18 17:06 Freq: Status: Active Protocol: Document 09/19/18 11:16 SA (Rec: 09/19/18 11:22 SA [email or web address]) Out-Patient Physical Therapy Visit Information Visit Information Visit Type Treatment Note Visit Start Time 09:45 Visit Stop Time 10:30 Total Visit Minutes 45 Visit Number 10 Number of HYBRID TECHNOLOGIST Visits 3 PT-OP-B Current Condition Start: 08/12/18 17:06 Freq: Status: Active Protocol: Document 08/12/18 12:00 HH (Rec: 08/12/18 17:14 HH [email or web address]) Current Condition History of Current Condition Onset Date 08/12/18 Current Complaints R knee pain, difficulty in walking and hiking, difficulty in turns History of Current Condition Pt c/o new onset of R knee pain couple months ago. Pt describes pain as dull and achy at the medial posterior aspect of R knee. Pt states she had significant increased in R knee pain after she went to hiking in [place] in June. Pt had trouble sleeping that night and her pain was very severe that she went to see her PCP on the following week. X-ray showed -ve findings but did not perform MRI. Pain tends to get worse with trunk and hip rotational movements, going up and down hills and walking uneven surface. Pt denies pain during walking straight line. Prior Treatments and Tests N/A Future Testing and Treatments Planned possible MRI Treatment Goals Patient/Caregiver Goals 1. to be able to hike again without pain 2. to be able to walk >2 miles without knee pain Prior Functional Status Baseline Function- ADL's Independent Baseline Function- Mobility Independent Current Functional Impairments (Reported) Functional Limitations- ADL's slow rotational activities during to pain Functional Limitations- Recreation/ Unale to hike due to knee pain Hobbies Personal Factors Other Personal Factors That May Effect osteopenia Therapy/Recovery PT-OP-C Subjective Start: 08/12/18 17:06 Freq: Status: Active Protocol: Document 09/19/18 11:16 SA (Rec: 09/19/18 11:22 SA [email or web address]) OP-PT Subjective Patient Comments Patient Comments Pt reports incresed soreness today from climbing up/down latter for painting. Was not able to go for hike since last visit to assess rough terrain . PT-OP-F Manual Assessment Start: 08/12/18 17:06 Freq: Status: Active Protocol: Document 08/12/18 12:00 HH (Rec: 08/13/18 09:32 [email or web address]) Manual Assessments Soft Tissue Assessment Soft Tissue Mobility Assessment Significant tenderness at medial joint line at R knee, R distal medial HS PT-OP-G Mobility & Gait Start: 08/12/18 17:06 Freq: Status: Active Protocol: Document 08/12/18 12:00 HH (Rec: 08/13/18 09:32 [email or web address]) OP Gait Assessment Assistive Devices Assistive Device None Orthotic/Prosthetic Devices or Brace: No Gait Deviations General Gait Pattern Antalgic Factors Limiting Gait Function Factors Limiting Gait Function Pain Comments Gait Comments 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 Lack of R TKE and heel strike during stance phase. PT-OP-J Posture/Palpation/Skin Start: 08/12/18 17:06 Freq: Status: Active Protocol: Document 08/12/18 12:00 HH (Rec: 08/13/18 09:32 [email or web address]) Posture Evaluation Position Standing Weight Distribution Weight Shifted Left Decreased Wt.Bear on (R) Knee Posture (R) Ext. Tibial Torsion (R) Excess Flexion Patellar Posture (R) Laterally Tilted Ankle/Foot Posture (R) Supinated (R) Calcaneal Inversion (R) Forefoot Eversion Foot Arch (R) High Arch (L) Medium Arch PT-OP-K Range of Motion Start: 08/12/18 17:06 Freq: Status: Active Protocol: Document 08/12/18 12:00 HH (Rec: 08/13/18 09:32 [email or web address]) Knee Goniometric Range of Motion Knee Measured in Degrees Right Knee ROM WFL Yes Patient Position Supine Flexion Active (degrees) 135 Extension Active (degrees) 2 Left Knee ROM WFL Yes Patient Position Supine Flexion Active (degrees) 135 Extension Active (degrees) 0 Knee ROM Limitations Knee ROM Limitations Soft Tissue Tightness Pain Comments R knee lack of full TKE. active ext = -2 from from full extension PT-OP-L Special Tests Start: 08/12/18 17:06 Freq: Status: Active Protocol: Document 08/12/18 12:00 HH (Rec: 03/13/19 09:32 HH [email or web address]) Special Tests Knee Special Tests Varus- 0 Degrees Test Results -ve Valgus- 0 Degrees Test Results -ve Apley's Compression Test Results +VE Comments with tibial external rotation on R knee Katerina Test Test Results +VE Comments with tibial external rotation on R knee Posterior Draw Test Results -ve Anterior Draw Test Results -ve PT-OP-M Strength Start: 08/12/18 17:06 Freq: Status: Active Protocol: Document 08/12/18 12:00 (Rec: 08/13/18 09:32 HH [email or web address]) Hip Strength Hip Manual Muscle Testing Right Flexion (L2) 4+ Good+ Extension (S1) 4+ Good+ Abduction 4 Good Adduction 4+ Good+ Left Flexion (L2) 5 Normal Extension (S1) 5 Normal Abduction 5 Normal Adduction 5 Normal Knee Strength Knee Manual Muscle Testing Right Flexion (S2) 4+ Good+ Extension (L3) 4+ Good+ Left Flexion (S2) 5 Normal Extension (L3) 5 Normal PT-OP-Q Treatments Start: 08/12/18 17:06 Freq: Status: Active Protocol: Document 09/19/18 11:16 SA (Rec: 09/19/18 11:22 SA [email or web address]) Cardio Equipment Treadmill Duration (Minutes) 10 Speed 2.5 Incline 0 Other Declined running today Gym Equipment Shuttle Balance Dynamic balance Details Red chain Reps/Duration 3 min Comments tandem stance, NBOS stance Therapeutic Exercises Prone Exercises Quad stretch Side bilateral Reps/Minutes 30 x 2 each Standing Exercises Lunge walk Side bilateral Reps/Minutes 2 lengths of bar Comments Focus on alignment RDD on foam with trunk rot Side bilateral Equipment Used 2 lbs weight ball Reps/Minutes 5 mins Comments with trunk rotation bosu ball single leg stance Side bilateral Equipment Used UE support Reps/Minutes 3 min lateral band walk Resistance green loop band Reps/Minutes 4 lengths Comments band at forefoot monster walk Side bilateral Resistance green loop band Reps/Minutes 100 feet Comments band at knees single leg stance against wall Side bilateral Reps/Minutes 10 x 5 each hip ER Side bilateral Equipment Used green band Reps/Minutes 10 x3 Comments foot neutral pointing forward, Hip ER Other Exercises hip EXT Side bilateral Resistance GRN TB Reps/Minutes 15x Comments foot position/control hip ABD Side bilateral Equipment Used GRN TB Reps/Minutes 15 x Comments focus on foot position/slow movement Neuro Re-Education Treatment Balance Activities Obstacle course Details balance pods, tilt board Surface step overs Reps/Duration 6 lengths Comments simulation of forest hike, cues for core engagement Squats on balance pods Reps/Duration 10x Comments core engagement SL mini squat Surface level Reps/Duration 10x PT-OP-T Assessment and Plan Start: 08/12/18 17:06 Freq: Status: Active Protocol: Document 09/19/18 11:16 SA (Rec: 09/19/18 11:22 SA [email or web address]) Physical Therapy Assessment Assessment Summary Assessment Pt to try hike this week end, knee feeling better after work out, encouraged to use CP at home when flared up. Tolerating balance/strength progressions well. Physical Therapy Plan Next Visit Focus/Plan Next Note Type Treatment Note Next Visit Plan Follow up with tolerance of hike, progress HEP and balance /strengthening program to begin running outside of clinic .
--- NOTE | 2018-10-01 19:27 | PT.OTN ---
Current Diagnoses Pain in right knee (10/01/18) Physical Therapy Treatment Note PT-OP-A Visit Information Start: 08/12/18 17:06 Freq: Status: Active Protocol: Document 10/01/18 17:30 HH (Rec: 10/01/18 19:27 [email or web address]) Out-Patient Physical Therapy Visit Information Visit Information Visit Type Treatment Note Visit Note Progress report Visit Start Time 17:30 Visit Stop Time 18:15 Total Visit Minutes 45 Visit Number 11 Number of PROFESSOR/NURSE ANESTHETIST Visits 0 PT-OP-B Current Condition Start: 08/12/18 17:06 Freq: Status: Active Protocol: Document 08/12/18 12:00 HH (Rec: 08/12/18 17:14 HH [email or web address]) Current Condition History of Current Condition Onset Date 08/12/18 Current Complaints R knee pain, difficulty in walking and hiking, difficulty in turns History of Current Condition Pt c/o new onset of R knee pain couple months ago. Pt describes pain as dull and achy at the medial posterior aspect of R knee. Pt states she had significant increased in R knee pain after she went to hiking in [place] in June. Pt had trouble sleeping that night and her pain was very severe that she went to see her PCP on the following week. X-ray showed -ve findings but did not perform MRI. Pain tends to get worse with trunk and hip rotational movements, going up and down hills and walking uneven surface. Pt denies pain during walking straight line. Prior Treatments and Tests N/A Future Testing and Treatments Planned possible MRI Treatment Goals Patient/Caregiver Goals 1. to be able to hike again without pain 2. to be able to walk >2 miles without knee pain Prior Functional Status Baseline Function- ADL's Independent Baseline Function- Mobility Independent Current Functional Impairments (Reported) Functional Limitations- ADL's slow rotational activities during to pain Functional Limitations- Recreation/ Unale to hike due to knee pain Hobbies Personal Factors Other Personal Factors That May Effect osteopenia Therapy/Recovery PT-OP-C Subjective Start: 08/12/18 17:06 Freq: Status: Active Protocol: Document 10/01/18 17:30 HH (Rec: 10/01/18 19:27 HH [email or web address]) OP-PT Subjective Patient Comments Patient Comments States she has been doing really good without any discomfort during turns, climbing ladder, yardwork and squatting. she also expects to be d/c within 1 to 2 weeks PT-OP-F Manual Assessment Start: 08/12/18 17:06 Freq: Status: Active Protocol: Document 08/12/18 12:00 HH (Rec: 08/13/18 09:32 [email or web address]) Manual Assessments Soft Tissue Assessment Soft Tissue Mobility Assessment Significant tenderness at medial joint line at R knee, R distal medial HS PT-OP-G Mobility & Gait Start: 08/12/18 17:06 Freq: Status: Active Protocol: Document 08/12/18 12:00 HH (Rec: 08/13/18 09:32 [email or web address]) OP Gait Assessment Assistive Devices Assistive Device None Orthotic/Prosthetic Devices or Brace: No Gait Deviations General Gait Pattern Antalgic Factors Limiting Gait Function Factors Limiting Gait Function Pain Comments Gait Comments 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 Lack of R TKE and heel strike during stance phase. PT-OP-J Posture/Palpation/Skin Start: 08/12/18 17:06 Freq: Status: Active Protocol: Document 08/12/18 12:00 HH (Rec: 08/13/18 09:32 [email or web address]) Posture Evaluation Position Standing Weight Distribution Weight Shifted Left Decreased Wt.Bear on (R) Knee Posture (R) Ext. Tibial Torsion (R) Excess Flexion Patellar Posture (R) Laterally Tilted Ankle/Foot Posture (R) Supinated (R) Calcaneal Inversion (R) Forefoot Eversion Foot Arch (R) High Arch (L) Medium Arch PT-OP-K Range of Motion Start: 08/12/18 17:06 Freq: Status: Active Protocol: Document 08/12/18 12:00 (Rec: 08/13/18 09:32 [email or web address]) Knee Goniometric Range of Motion Knee Measured in Degrees Right Knee ROM WFL Yes Patient Position Supine Flexion Active (degrees) 135 Extension Active (degrees) 2 Left Knee ROM WFL Yes Patient Position Supine Flexion Active (degrees) 135 Extension Active (degrees) 0 Knee ROM Limitations Knee ROM Limitations Soft Tissue Tightness Pain Comments R knee lack of full TKE. active ext = -2 from from full extension PT-OP-L Special Tests Start: 08/12/18 17:06 Freq: Status: Active Protocol: Document 08/12/18 12:00 HH (Rec: 08/13/18 09:32 [email or web address]) Special Tests Knee Special Tests Varus- 0 Degrees Test Results -ve Valgus- 0 Degrees Test Results -ve Apley's Compression Test Results +VE Comments with tibial external rotation on R knee Katerina Test Test Results +VE Comments with tibial external rotation on R knee Posterior Draw Test Results -ve Anterior Draw Test Results -ve PT-OP-M Strength Start: 08/12/18 17:06 Freq: Status: Active Protocol: Document 08/12/18 12:00 HH (Rec: 08/13/18 09:32 [email or web address]) Hip Strength Hip Manual Muscle Testing Right Flexion (L2) 4+ Good+ Extension (S1) 4+ Good+ Abduction 4 Good Adduction 4+ Good+ Left Flexion (L2) 5 Normal Extension (S1) 5 Normal Abduction 5 Normal Adduction 5 Normal Knee Strength Knee Manual Muscle Testing Right Flexion (S2) 4+ Good+ Extension (L3) 4+ Good+ Left Flexion (S2) 5 Normal Extension (L3) 5 Normal PT-OP-Q Treatments Start: 08/12/18 17:06 Freq: Status: Active Protocol: Document 10/01/18 17:30 HH (Rec: 10/01/18 19:27 [email or web address]) Gym Equipment Shuttle Recovery single leg squat Details heel push off Resistance 50 # Shuttle Recovery Platform Stable B squat Resistance 100# Shuttle Recovery Platform Stable Reps/Time heel/ forefoot push off Therapeutic Exercises Prone Exercises Quad stretch Side bilateral Reps/Minutes 30 x 2 each Standing Exercises standing dancer pose Side bilateral Equipment Used table and chair for support Reps/Minutes 5 mins Comments hand hold ankle RDL on foam Standing Exercise Name on trampoline Side bilateral Equipment Used UE support as needed Reps/Minutes 5 mins step up 5 inches Standing Exercise Name lateral step up and down Side bilateral Equipment Used 10 inches Reps/Minutes 6 x 4 Comments focus on neutral hip, knee and foot alignment PT-OP-T Assessment and Plan Start: 08/12/18 17:06 Freq: Status: Active Protocol: Document 10/01/18 17:30 HH (Rec: 10/01/18 19:27 [email or web address]) Physical Therapy Assessment Goals running Impairment unable to run due to knee pain Culinary Specialist Goal (LTG) pt will be able to run without discomfort along with proper mechanics without hip drop LTG Duration 4 weeks HEP Skilled Nursing Goal (LTG) goal met. Pt has been compliant to HEP ROM Skilled Nursing Goal (LTG) goal met; Pt has regained WFL knee A/PROM R=L pain Culinary Specialist Goal (LTG) goal met: pt carlos knee pain during walking, turns, uneven surface. Progress Towards Goals Progress Towards Goals Progressing Toward Goals Assessment Summary Assessment Pt cont to progress without c/ o. Pt has been able to walk on uneven surface in community without discomfort. tx focused on B LE strengthening, single leg balance and hip stability . Pt showed improved LE alignment and stability during single leg step up without medial collapse. Recommended pt to jog this weekend to assess her knee condition. Expect to d/c pt in 2 visits. standing quad stretch is given today to mimic dancer pose. Physical Therapy Plan Next Visit Focus/Plan Next Note Type Treatment Note Next Visit Plan running program Follow up with tolerance of hike, dancer pose, running progress HEP and balance/ strengthening program to begin runnin outside of clinic.
--- NOTE | 2018-10-03 17:20 | PT.OTN ---
Current Diagnoses Pain in right knee (10/03/18) Physical Therapy Treatment Note PT-OP-A Visit Information Start: 08/12/18 17:06 Freq: Status: Active Protocol: Document 10/03/18 13:45 HH (Rec: 10/03/18 17:20 [email or web address]) Out-Patient Physical Therapy Visit Information Visit Information Visit Type Treatment Note Visit Start Time 13:45 Visit Stop Time 14:30 Total Visit Minutes 45 Visit Number 12 Number of EDITOR MANAGING NEWSPAPER Visits 0 PT-OP-B Current Condition Start: 08/12/18 17:06 Freq: Status: Active Protocol: Document 08/12/18 12:00 HH (Rec: 08/12/18 17:14 [email or web address]) Current Condition History of Current Condition Onset Date 08/12/18 Current Complaints R knee pain, difficulty in walking and hiking, difficulty in turns History of Current Condition Pt c/o new onset of R knee pain couple months ago. Pt describes pain as dull and achy at the medial posterior aspect of R knee. Pt states she had significant increased in R knee pain after she went to hiking in [place] in June. Pt had trouble sleeping that night and her pain was very severe that she went to see her PCP on the following week. X-ray showed -ve findings but did not perform MRI. Pain tends to get worse with trunk and hip rotational movements, going up and down hills and walking uneven surface. Pt denies pain during walking straight line. Prior Treatments and Tests N/A Future Testing and Treatments Planned possible MRI Treatment Goals Patient/Caregiver Goals 1. to be able to hike again without pain 2. to be able to walk >2 miles without knee pain Prior Functional Status Baseline Function- ADL's Independent Baseline Function- Mobility Independent Current Functional Impairments (Reported) Functional Limitations- ADL's slow rotational activities during to pain Functional Limitations- Recreation/ Unale to hike due to knee pain Hobbies Personal Factors Other Personal Factors That May Effect osteopenia Therapy/Recovery PT-OP-C Subjective Start: 08/12/18 17:06 Freq: Status: Active Protocol: Document 10/03/18 13:45 HH (Rec: 10/03/18 17:20 [email or web address]) OP-PT Subjective Patient Comments Patient Comments no new c/o. PT-OP-F Manual Assessment Start: 08/12/18 17:06 Freq: Status: Active Protocol: Document 08/12/18 12:00 HH (Rec: 08/13/18 09:32 [email or web address]) Manual Assessments Soft Tissue Assessment Soft Tissue Mobility Assessment Significant tenderness at medial joint line at R knee, R distal medial HS PT-OP-G Mobility & Gait Start: 08/12/18 17:06 Freq: Status: Active Protocol: Document 08/12/18 12:00 HH (Rec: 08/13/18 09:32 [email or web address]) OP Gait Assessment Assistive Devices Assistive Device None Orthotic/Prosthetic Devices or Brace: No Gait Deviations General Gait Pattern Antalgic Factors Limiting Gait Function Factors Limiting Gait Function Pain Comments Gait Comments 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 Lack of R TKE and heel strike during stance phase. PT-OP-J Posture/Palpation/Skin Start: 08/12/18 17:06 Freq: Status: Active Protocol: Document 08/12/18 12:00 HH (Rec: 08/13/18 09:32 [email or web address]) Posture Evaluation Position Standing Weight Distribution Weight Shifted Left Decreased Wt.Bear on (R) Knee Posture (R) Ext. Tibial Torsion (R) Excess Flexion Patellar Posture (R) Laterally Tilted Ankle/Foot Posture (R) Supinated (R) Calcaneal Inversion (R) Forefoot Eversion Foot Arch (R) High Arch (L) Medium Arch PT-OP-K Range of Motion Start: 08/12/18 17:06 Freq: Status: Active Protocol: Document 08/12/18 12:00 HH (Rec: 08/13/18 09:32 [email or web address]) Knee Goniometric Range of Motion Knee Measured in Degrees Right Knee ROM WFL Yes Patient Position Supine Flexion Active (degrees) 135 Extension Active (degrees) 2 Left Knee ROM WFL Yes Patient Position Supine Flexion Active (degrees) 135 Extension Active (degrees) 0 Knee ROM Limitations Knee ROM Limitations Soft Tissue Tightness Pain Comments R knee lack of full TKE. active ext = -2 from from full extension PT-OP-L Special Tests Start: 08/12/18 17:06 Freq: Status: Active Protocol: Document 08/12/18 12:00 HH (Rec: 08/13/18 09:32 [email or web address]) Special Tests Knee Special Tests Varus- 0 Degrees Test Results -ve Valgus- 0 Degrees Test Results -ve Apley's Compression Test Results +VE Comments with tibial external rotation on R knee Katerina Test Test Results +VE Comments with tibial external rotation on R knee Posterior Draw Test Results -ve Anterior Draw Test Results -ve PT-OP-M Strength Start: 08/12/18 17:06 Freq: Status: Active Protocol: Document 08/12/18 12:00 HH (Rec: 08/13/18 09:32 [email or web address]) Hip Strength Hip Manual Muscle Testing Right Flexion (L2) 4+ Good+ Extension (S1) 4+ Good+ Abduction 4 Good Adduction 4+ Good+ Left Flexion (L2) 5 Normal Extension (S1) 5 Normal Abduction 5 Normal Adduction 5 Normal Knee Strength Knee Manual Muscle Testing Right Flexion (S2) 4+ Good+ Extension (L3) 4+ Good+ Left Flexion (S2) 5 Normal Extension (L3) 5 Normal PT-OP-Q Treatments Start: 08/12/18 17:06 Freq: Status: Active Protocol: Document 10/03/18 13:45 HH (Rec: 10/03/18 17:20 [email or web address]) Cardio Equipment Elliptical Duration (Minutes) 6 Resistance 4 Therapeutic Exercises Prone Exercises Quad stretch Side bilateral Reps/Minutes 30 x 2 each Standing Exercises tempo squat Side bilateral Equipment Used grab bar Reps/Minutes 5 secs up and down Comments hip hinge pattern hip flexor stretch Standing Exercise Name lunge position Side bilateral Reps/Minutes 30secs x 6 x 4 standing dancer pose Side bilateral Equipment Used table and chair for support Reps/Minutes 5 mins Comments hand hold ankle RDL on foam Standing Exercise Name on trampoline Side bilateral Equipment Used UE support as needed Reps/Minutes 5 mins step up 5 inches Standing Exercise Name lateral step up and down Side bilateral Equipment Used 10 inches Reps/Minutes 6 x 4 Comments focus on neutral hip, knee and foot alignment PT-OP-T Assessment and Plan Start: 08/12/18 17:06 Freq: Status: Active Protocol: Document 10/03/18 13:45 HH (Rec: 10/03/18 17:20 [email or web address]) Physical Therapy Assessment Assessment Summary Assessment no new c/o. Overall improved single leg strength and dynamic stability with proper body mechanics Physical Therapy Plan Next Visit Focus/Plan Next Note Type Treatment Note Next Visit Plan running program Follow up with tolerance of hike, dancer pose, running progress HEP and balance/ strengthening program to begin runnin outside of clinic.
--- NOTE | 2018-10-07 12:09 | PT.OTN ---
Current Diagnoses Pain in right knee (10/07/18) Physical Therapy Treatment Note PT-OP-A Visit Information Start: 08/12/18 17:06 Freq: Status: Active Protocol: Document 10/07/18 09:45 HH (Rec: 10/07/18 10:37 [email or web address]) Out-Patient Physical Therapy Visit Information Visit Information Visit Type Treatment Note Visit Note d/C today Visit Start Time 09:45 Visit Stop Time 10:30 Total Visit Minutes 45 Visit Number 13 Number of TELLER MANAGER Visits 0 PT-OP-B Current Condition Start: 08/12/18 17:06 Freq: Status: Active Protocol: Document 08/12/18 12:00 HH (Rec: 08/12/18 17:14 HH [email or web address]) Current Condition History of Current Condition Onset Date 08/12/18 Current Complaints R knee pain, difficulty in walking and hiking, difficulty in turns History of Current Condition Pt c/o new onset of R knee pain couple months ago. Pt describes pain as dull and achy at the medial posterior aspect of R knee. Pt states she had significant increased in R knee pain after she went to hiking in [place] in June. Pt had trouble sleeping that night and her pain was very severe that she went to see her PCP on the following week. X-ray showed -ve findings but did not perform MRI. Pain tends to get worse with trunk and hip rotational movements, going up and down hills and walking uneven surface. Pt denies pain during walking straight line. Prior Treatments and Tests N/A Future Testing and Treatments Planned possible MRI Treatment Goals Patient/Caregiver Goals 1. to be able to hike again without pain 2. to be able to walk >2 miles without knee pain Prior Functional Status Baseline Function- ADL's Independent Baseline Function- Mobility Independent Current Functional Impairments (Reported) Functional Limitations- ADL's slow rotational activities during to pain Functional Limitations- Recreation/ Unale to hike due to knee pain Hobbies Personal Factors Other Personal Factors That May Effect osteopenia Therapy/Recovery PT-OP-C Subjective Start: 08/12/18 17:06 Freq: Status: Active Protocol: Document 10/07/18 09:45 HH (Rec: 10/07/18 10:37 [email or web address]) OP-PT Subjective Patient Comments Patient Comments I jogged 1/2 mile yesterday and did some hill stuff and it did not bother my knee, PT-OP-F Manual Assessment Start: 08/12/18 17:06 Freq: Status: Active Protocol: Document 08/12/18 12:00 (Rec: 08/13/18 09:32 [email or web address]) Manual Assessments Soft Tissue Assessment Soft Tissue Mobility Assessment Significant tenderness at medial joint line at R knee, R distal medial HS PT-OP-G Mobility & Gait Start: 08/12/18 17:06 Freq: Status: Active Protocol: Document 08/12/18 12:00 HH (Rec: 08/13/18 09:32 [email or web address]) OP Gait Assessment Assistive Devices Assistive Device None Orthotic/Prosthetic Devices or Brace: No Gait Deviations General Gait Pattern Antalgic Factors Limiting Gait Function Factors Limiting Gait Function Pain Comments Gait Comments 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 Lack of R TKE and heel strike during stance phase. PT-OP-J Posture/Palpation/Skin Start: 08/12/18 17:06 Freq: Status: Active Protocol: Document 08/12/18 12:00 HH (Rec: 08/13/18 09:32 [email or web address]) Posture Evaluation Position Standing Weight Distribution Weight Shifted Left Decreased Wt.Bear on (R) Knee Posture (R) Ext. Tibial Torsion (R) Excess Flexion Patellar Posture (R) Laterally Tilted Ankle/Foot Posture (R) Supinated (R) Calcaneal Inversion (R) Forefoot Eversion Foot Arch (R) High Arch (L) Medium Arch PT-OP-K Range of Motion Start: 08/12/18 17:06 Freq: Status: Active Protocol: Document 08/12/18 12:00 HH (Rec: 08/13/18 09:32 [email or web address]) Knee Goniometric Range of Motion Knee Measured in Degrees Right Knee ROM WFL Yes Patient Position Supine Flexion Active (degrees) 135 Extension Active (degrees) 2 Left Knee ROM WFL Yes Patient Position Supine Flexion Active (degrees) 135 Extension Active (degrees) 0 Knee ROM Limitations Knee ROM Limitations Soft Tissue Tightness Pain Comments R knee lack of full TKE. active ext = -2 from from full extension PT-OP-L Special Tests Start: 08/12/18 17:06 Freq: Status: Active Protocol: Document 08/12/18 12:00 HH (Rec: 08/13/18 09:32 [email or web address]) Special Tests Knee Special Tests Varus- 0 Degrees Test Results -ve Valgus- 0 Degrees Test Results -ve Apley's Compression Test Results +VE Comments with tibial external rotation on R knee Katerina Test Test Results +VE Comments with tibial external rotation on R knee Posterior Draw Test Results -ve Anterior Draw Test Results -ve PT-OP-M Strength Start: 08/12/18 17:06 Freq: Status: Active Protocol: Document 08/12/18 12:00 HH (Rec: 08/13/18 09:32 [email or web address]) Hip Strength Hip Manual Muscle Testing Right Flexion (L2) 4+ Good+ Extension (S1) 4+ Good+ Abduction 4 Good Adduction 4+ Good+ Left Flexion (L2) 5 Normal Extension (S1) 5 Normal Abduction 5 Normal Adduction 5 Normal Knee Strength Knee Manual Muscle Testing Right Flexion (S2) 4+ Good+ Extension (L3) 4+ Good+ Left Flexion (S2) 5 Normal Extension (L3) 5 Normal PT-OP-Q Treatments Start: 08/12/18 17:06 Freq: Status: Active Protocol: Document 10/07/18 09:45 (Rec: 10/07/18 10:37 [email or web address]) Cardio Equipment Recumbent Bicycle Duration (Minutes) 8 Resistance 6 Gym Equipment Shuttle Recovery single leg squat Details heel push off Resistance 50 # Shuttle Recovery Platform Unstable Reps/Time heel/ forefoot push off B squat Resistance 100# Shuttle Recovery Platform Unstable Reps/Time heel/ forefoot push off Therapeutic Exercises Standing Exercises slider lunges Side bilateral Equipment Used sliders Reps/Minutes 10 mins Comments forward and lateral single leg STS Side bilateral Equipment Used stool Reps/Minutes 6 x 4 Comments 5secs down tempo squat Side bilateral Equipment Used grab bar Reps/Minutes 5 secs up and down Comments hip hinge pattern PT-OP-T Assessment and Plan Start: 08/12/18 17:06 Freq: Status: Active Protocol: Document 10/07/18 09:45 (Rec: 10/07/18 12:08 [email or web address]) Physical Therapy Assessment Goals running Is Analyst Goal (LTG) goal met: Able to run without symptoms HEP Is Analyst Goal (LTG) goal met ROM Is Analyst Goal (LTG) goal met pain Nursing Home Goal (LTG) goal met Progress Towards Goals Progress Towards Goals Goals Met Assessment Summary Assessment D/c pt from PT today due to significant progress and goals have met. Pt has been symptoms free for the past month with increased activity tolerance and strength. Pt is now able to return to PLOF and activities w/c c/o. educated pt home exercise program with BW training today. Physical Therapy Plan Discharge Physical Therapy Discharge Reasons Goals Met
== END 2018-10-08 16:41 | disposition home or self-care (01) ==
LOC: PHYS 09:45
PROVIDERS: PCP Family Medicine; Visit Provider Family Medicine
DX: M25.561 Pain in right knee (principal)
CPT/HCPCS: 97110; 97112; 97140; 97161; 97530

== ENCOUNTER → 2019-04-02 07:02 | Outpatient (CLI) | payer MEDICARE, SELFPAY ==
[2019-04-02 08:40] LABS: Add Manual Diff / Slide Review NO; Basophils Absolute Auto 0 /uL (0-100); Basophils Percent Auto 0.3 % (0-2); Eosinophils Absolute Auto 100 /uL (0-450); Eosinophils Percent Auto 1.4 % (2-4); Hematocrit 42.3 % (36-46); Hemoglobin 14.6 g/dL (12.0-16.0); Lymphocytes Absolute Auto 2000 /uL (1100-4500); Mean Corpuscular HGB Conc 34.6 % (30-36); Mean Corpuscular Hemoglobin 32.6 PG (26-34); Mean Corpuscular Volume 94.2 fL (80-100); Monocytes Absolute Auto 500 /uL (0-900); Monocytes Percent Auto 9.3 % (3-14); Neutrophils Absolute Auto 3200 /uL (1500-7000); Platelet Count 249 X10^3/uL (150-400); Red Blood Cell Count 4.49 X10^6/uL (4.0-5.2); Red Cell Distribution Width 12.6 % (11.6-14.8); White Blood Cell Count 5.8 X10^3/uL (4.5-11.0)
[2019-04-02 08:52] LABS: Alanine Aminotransferase 42 IU/L (9-52); Albumin 4.6 g/dL (3.5-5.0); Albumin Globulin Ratio 1.7 (1.0-2.8); Alkaline Phosphatase 68 U/L (38-126); Aspartate Aminotransferase 35 IU/L (14-36); BUN Creatinine Ratio 31.4 (6-22); Bilirubin Total 0.9 mg/dL (0.2-1.3); Blood Urea Nitrogen 22 mg/dL (7-17); Calcium 9.5 mg/dL (8.4-10.2); Carbon Dioxide 32 mmol/L (22-32); Chloride 95 mmol/L (98-107); Cholesterol 181 mg/dL (140-199); Estimated Glomerular Filt Rate > 60.0 mL/min (>60); Globulin 2.7 g/dL (1.7-4.1); Glucose 105 mg/dL (80-110); HDL Cholesterol 61 mg/dL (40-60); HEMOLYSIS < 15 (0-50); LDL Cholesterol Calculated 97 mg/dL (<100); Potassium 4.3 mmol/L (3.4-5.1); Sodium 135 mmol/L (137-145); Total Protein 7.3 g/dL (6.3-8.2); Triglycerides 117 mg/dL (35-150)
[2019-04-02 09:54] LABS: Thyroid Stimulating Hormone 1.27 uIU/mL (0.47-4.68)
== END ==
PROVIDERS: Family Provider Physician Assistant; PCP Family Medicine; Visit Provider Family Medicine
DX: E03.9 Hypothyroidism, unspecified (principal); E78.5 Hyperlipidemia, unspecified; I10 Essential (primary) hypertension
CPT/HCPCS: 36415; 80053; 80061; 84443; 85025

== ENCOUNTER → 2019-06-26 14:13 | Outpatient (CLI) | payer MEDICARE, SELFPAY ==
--- NOTE | 2019-06-26 | DI.MG.S_ITS ---
BILATERAL DIGITAL SCREENING MAMMOGRAM 3D/2D WITH CAD WITH AUGMENTATION: 06/26/2019 CLINICAL: Routine screening. Family history of breast cancer. Comparison is made to exams dated: 05/12/2018 mammogram, 01/07/2017 mammogram, 01/04/2016 mammogram, and 07/15/2014 mammogram - [facility]. The tissue of both breasts is heterogeneously dense. This may lower the sensitivity of mammography. Current study was also evaluated with a Computer Aided Detection (CAD) system. Bilateral breast implants are stable. There are benign dystrophic calcifications adjacent the bilateral implants in both breasts. No significant masses, calcifications, or other findings are seen in either breast. There has been no significant interval change. IMPRESSION: There is no mammographic evidence of malignancy. A 1 year screening mammogram is recommended. This exam was interpreted at Station ID: [id number]. NOTE: For mammograms, a report in lay terms will be sent to the patient. Approximately 15% of breast malignancies will not be visualized mammographically. In the management of a palpable breast mass, a negative mammogram must not discourage biopsy of a clinically suspicious lesion. Electronically Signed By: Dann James M.D. ecl/:06/26/2019 19:22:36 letter sent: Normal Exam ACR BI-RADS Category 2: Benign Finding(s) 3342F
== END ==
PROVIDERS: PCP Family Medicine; Visit Provider Family Medicine
DX: Z12.31 Encounter for screening mammogram for malignant neoplasm of breast (principal); Z80.3 Family history of malignant neoplasm of breast
CPT/HCPCS: 77063; 77067

== ENCOUNTER → 2019-09-30 12:49 | Outpatient (CLI) | payer MEDICARE, SELFPAY ==
--- NOTE | 2019-09-30 12:52 | DI.RAD.S_ITS ---
PROCEDURE: XR KNEE RT 3V INDICATIONS: rt knee pain and swelling TECHNIQUE: 3 views of the knee were acquired. COMPARISON: [facility], CR, XR KNEE RT 3V, 07/14/2018, 15:00. FINDINGS: Bones: No fractures or dislocations. No suspicious bony lesions. There is mild medial femorotibial joint space narrowing seen, with associated remodeling changes including subchondral sclerosis and osteophyte formation along the jointline. On the sunrise view, there is minimal to mild lateral patellofemoral joint space narrowing seen. Osteophyte formation can be seen along the margins of the patella. There is an enthesophyte seen along the superior aspect of the patella. Soft tissues: No joint effusion. No suspicious soft tissue calcifications. IMPRESSION: Unremarkable plain films for age, with age-appropriate degenerative change. Dictated by: Jimmy Ann M.D. on 09/30/2019 at 12:33 Approved by: Jimmy Ann M.D. on 09/30/2019 at 12:33
== END ==
PROVIDERS: PCP Family Medicine; Referring Provider Family Medicine; Visit Provider Family Medicine
DX: M25.561 Pain in right knee (principal); M25.461 Effusion, right knee
CPT/HCPCS: 73562

== ENCOUNTER → 2020-02-29 07:07 | Outpatient (CLI) | payer MEDICARE, SELFPAY ==
[2020-02-29 08:17] LABS: Add Manual Diff / Slide Review NO; Basophils Absolute Auto 0 /uL (0-100); Basophils Percent Auto 0.4 % (0-2); Eosinophils Absolute Auto 100 /uL (0-450); Eosinophils Percent Auto 1.1 % (2-4); Hemoglobin 15.1 g/dL (12.0-16.0); Lymphocytes Absolute Auto 2300 /uL (1100-4500); Lymphocytes Percent Auto 39.7 % (25-40); Mean Corpuscular HGB Conc 35.2 % (30-36); Mean Corpuscular Hemoglobin 33.2 PG (26-34); Mean Corpuscular Volume 94.3 fL (80-100); Monocytes Absolute Auto 400 /uL (0-900); Monocytes Percent Auto 6.9 % (3-14); Neutrophils Absolute Auto 3100 /uL (1500-7000); Neutrophils Percent Auto 51.9 % (50-75); Platelet Count 228 X10^3/uL (150-400); Red Blood Cell Count 4.55 X10^6/uL (4.0-5.2); Red Cell Distribution Width 12.7 % (11.6-14.8); White Blood Cell Count 5.9 X10^3/uL (4.5-11.0)
[2020-02-29 08:24] LABS: Alanine Aminotransferase 46 IU/L (<35); Albumin 4.3 g/dL (3.5-5.0); Albumin Globulin Ratio 1.6 (1.0-2.8); Alkaline Phosphatase 68 U/L (38-126); Aspartate Aminotransferase 38 IU/L (14-36); BUN Creatinine Ratio 28.4 (6-22); Bilirubin Total 0.7 mg/dL (0.2-1.3); Blood Urea Nitrogen 21 mg/dL (7-17); Calcium 9.7 mg/dL (8.4-10.2); Carbon Dioxide 32 mmol/L (22-32); Chloride 111 mmol/L (98-107); Cholesterol 163 mg/dL (140-199); Estimated Glomerular Filt Rate > 60.0 mL/min (>60); Globulin 2.7 g/dL (1.7-4.1); Glucose 99 mg/dL (80-110); HDL Cholesterol 67 mg/dL (40-60); HEMOLYSIS < 15 (0-50); LDL Cholesterol Calculated 67 mg/dL (<100); Potassium 4.7 mmol/L (3.4-5.1); Sodium 137 mmol/L (137-145); Triglycerides 143 mg/dL (35-150)
[2020-02-29 08:51] LABS: TSH w/ Reflex to FT4 2.23 uIU/mL (0.47-4.68)
[2020-02-29 16:13] LABS: Hep C Virus Ab w/Reflex Quant NEGATIVE s/c (NEGATIVE)
== END ==
PROVIDERS: PCP Family Medicine; Referring Provider Family Medicine; Visit Provider Family Medicine
DX: E03.9 Hypothyroidism, unspecified (principal); E78.5 Hyperlipidemia, unspecified; I10 Essential (primary) hypertension
CPT/HCPCS: 36415; 80053; 80061; 84443; 85025; 86803

== ENCOUNTER → 2020-04-09 08:48 | Outpatient (CLI) | payer MEDICARE, SELFPAY ==
[2020-04-11 08:00] LABS: COVID19 Sendout Not Detected (Not Detect)
== END ==
PROVIDERS: PCP Family Medicine; Visit Provider Physician Assistant
DX: Z11.59 Encounter for screening for other viral diseases (principal)
CPT/HCPCS: 87635

== ENCOUNTER → 2020-07-19 11:56 | Outpatient (CLI) | payer MEDICARE, SELFPAY ==
--- NOTE | 2020-07-19 11:58 | DI.MG.S_ITS ---
BILATERAL DIGITAL SCREENING MAMMOGRAM 3D/2D WITH CAD WITH AUGMENTATION: 07/19/2020 CLINICAL: Routine screening. Family history of breast cancer. Comparison is made to exams dated: 06/26/2019 mammogram, 05/12/2018 mammogram, and 01/07/2017 mammogram - [facility]. The tissue of both breasts is heterogeneously dense. This may lower the sensitivity of mammography. Current study was also evaluated with a Computer Aided Detection (CAD) system. Bilateral breast implants are stable. There are benign calcifications in both breasts. No significant masses, calcifications, or other findings are seen in either breast. There has been no significant interval change. IMPRESSION: BENIGN There is no mammographic evidence of malignancy. A 1 year screening mammogram is recommended. This exam was interpreted at Station ID: [id number]. NOTE: For mammograms, a report in lay terms will be sent to the patient. Approximately 15% of breast malignancies will not be visualized mammographically. In the management of a palpable breast mass, a negative mammogram must not discourage biopsy of a clinically suspicious lesion. Electronically Signed By: Dwayne mahan/grecia:07/19/2020 12:43:45 letter sent: Normal Exam ACR BI-RADS Category 2: Benign Finding(s) 3342F
== END ==
PROVIDERS: PCP Family Medicine; Referring Provider Family Medicine; Visit Provider Family Medicine
DX: Z12.31 Encounter for screening mammogram for malignant neoplasm of breast (principal); Z80.3 Family history of malignant neoplasm of breast
CPT/HCPCS: 77063; 77067

== ENCOUNTER → 2021-01-02 14:43 | Outpatient (CLI) | payer MEDICARE, SELFPAY | PROVIDERS: PCP Family Medicine; Referring Provider Family Medicine; Visit Provider Family Medicine | DX: M85.88 Other specified disorders of bone density and structure, other site (principal); Z78.0 Asymptomatic menopausal state; E07.9 Disorder of thyroid, unspecified; Z87.891 Personal history of nicotine dependence | CPT/HCPCS: 77080 ==

== ENCOUNTER → 2021-01-20 14:59 | Outpatient (CLI) | payer MEDICARE, SELFPAY ==
[2021-01-20 15:07] LABS: Bacteria Urine None Seen; RBC Urine None Seen (0-5/HPF); WBC Urine None Seen (0-5/HPF)
[2021-01-20 15:51] LABS: Appearance Urine UA CLEAR; Bilirubin Urine UA NEGATIVE (NEGATIVE); Color Urine UA YELLOW; Glucose Urine UA NEGATIVE (Negative); Ketones Urine UA NEGATIVE (NEGATIVE); Leukocyte Esterase Urine UA TRACE (NEGATIVE); Nitrite Urine UA NEGATIVE (Negative); Occult Blood Urine UA NEGATIVE (Negative); Protein Urine UA NEGATIVE (Negative); Specific Gravity Urine UA 1.015 (1.000-1.035); Urobilinogen Urine UA 0.2 E.U./dL (0.2)
[2021-01-20 15:59] LABS: Culture Indicated Urine Cult Not Indicated; Urine Comments Microscopic Normal
== END ==
PROVIDERS: PCP Family Medicine; Referring Provider Family Medicine; Visit Provider Family Medicine
DX: R30.0 Dysuria (principal)
CPT/HCPCS: 81001

== ENCOUNTER → 2021-01-23 15:00 | Outpatient (CLI) | payer MEDICARE, SELFPAY ==
[2021-01-23 18:28] LABS: Bacteria Urine None Seen
[2021-01-23 18:31] LABS: Appearance Urine UA CLEAR; Bilirubin Urine UA NEGATIVE (NEGATIVE); Color Urine UA YELLOW; Glucose Urine UA NEGATIVE (Negative); Ketones Urine UA NEGATIVE (NEGATIVE); Leukocyte Esterase Urine UA 1+ (NEGATIVE); Nitrite Urine UA NEGATIVE (Negative); Occult Blood Urine UA NEGATIVE (Negative); Protein Urine UA NEGATIVE (Negative); Urobilinogen Urine UA 0.2 E.U./dL (0.2)
[2021-01-23 18:52] LABS: pH Urine UA 6.5 (4.5-8.0)
[2021-01-23 18:54] LABS: Culture Indicated Urine Specimen Cultured; RBC Urine 1-5/HPF (0-5/HPF); WBC Urine 5-10/HPF (0-5/HPF)
== END ==
PROVIDERS: PCP Family Medicine; Visit Provider Family Medicine
DX: R30.0 Dysuria (principal)
CPT/HCPCS: 81001; 87086

== ENCOUNTER → 2021-06-09 07:00 | Outpatient (CLI) | payer MEDICARE, SELFPAY ==
[2021-06-09 09:03] LABS: Add Manual Diff / Slide Review NO; Basophils Absolute Auto 0 /uL (0-100); Basophils Percent Auto 0.2 % (0-2); Eosinophils Absolute Auto 100 /uL (0-450); Eosinophils Percent Auto 1.2 % (2-4); Hematocrit 43.3 % (36-46); Hemoglobin 15.1 g/dL (12.0-16.0); Lymphocytes Absolute Auto 2200 /uL (1100-4500); Lymphocytes Percent Auto 38.7 % (25-40); Mean Corpuscular HGB Conc 34.9 % (30-36); Mean Corpuscular Hemoglobin 32.4 PG (26-34); Monocytes Absolute Auto 500 /uL (0-900); Monocytes Percent Auto 8.7 % (3-14); Neutrophils Absolute Auto 3000 /uL (1500-7000); Neutrophils Percent Auto 51.2 % (50-75); Platelet Count 238 X10^3/uL (150-400); Red Blood Cell Count 4.66 X10^6/uL (4.0-5.2); White Blood Cell Count 5.8 X10^3/uL (4.5-11.0)
[2021-06-09 09:31] LABS: Alanine Aminotransferase 47 IU/L (<35); Albumin 4.5 g/dL (3.5-5.0); Albumin Globulin Ratio 1.7 (1.0-2.8); Alkaline Phosphatase 71 U/L (38-126); Aspartate Aminotransferase 36 IU/L (14-36); BUN Creatinine Ratio 26.2 (6-22); Bilirubin Total 0.8 mg/dL (0.2-1.3); Blood Urea Nitrogen 22 mg/dL (7-17); Calcium 9.8 mg/dL (8.4-10.2); Carbon Dioxide 28 mmol/L (22-32); Chloride 98 mmol/L (98-107); Cholesterol 173 mg/dL (140-199); Estimated Glomerular Filt Rate > 60.0 mL/min (>60); Globulin 2.6 g/dL (1.7-4.1); Glucose 116 mg/dL (80-110); HDL Cholesterol 73 mg/dL (40-60); HEMOLYSIS < 15 (0-50); LDL Cholesterol Calculated 78 mg/dL (<100); Potassium 4.6 mmol/L (3.4-5.1); Sodium 134 mmol/L (137-145); Total Protein 7.1 g/dL (6.3-8.2); Triglycerides 112 mg/dL (35-150)
[2021-06-09 09:58] LABS: TSH w/ Reflex to FT4 2.18 uIU/mL (0.47-4.68)
== END ==
PROVIDERS: PCP Family Medicine; Referring Provider Family Medicine; Visit Provider Family Medicine
DX: E03.9 Hypothyroidism, unspecified (principal); E78.5 Hyperlipidemia, unspecified; I10 Essential (primary) hypertension
CPT/HCPCS: 36415; 80053; 80061; 84443; 85025

== ENCOUNTER → 2021-08-07 15:02 | Outpatient (CLI) | payer MEDICARE, SELFPAY ==
--- NOTE | 2021-08-07 15:04 | DI.MG.S_ITS ---
BILATERAL DIGITAL SCREENING MAMMOGRAM 3D/2D WITH CAD WITH AUGMENTATION: 08/07/2021 CLINICAL: Family history of breast cancer. Comparison is made to exams dated: 07/19/2020 mammogram, 06/26/2019 mammogram, and 05/12/2018 mammogram - [facility]. The tissue of both breasts is heterogeneously dense. This may lower the sensitivity of mammography. Current study was also evaluated with a Computer Aided Detection (CAD) system. Bilateral breast implants are stable. There are benign calcifications in both breasts. No significant masses, calcifications, or other findings are seen in either breast. There has been no significant interval change. IMPRESSION: BENIGN There is no mammographic evidence of malignancy. A 1 year screening mammogram is recommended. This exam was interpreted at Station ID: [id number]. NOTE: For mammograms, a report in lay terms will be sent to the patient. Approximately 15% of breast malignancies will not be visualized mammographically. In the management of a palpable breast mass, a negative mammogram must not discourage biopsy of a clinically suspicious lesion. Electronically Signed By: Bi pratt/grecia:08/07/2021 15:45:40 letter sent: Normal Exam ACR BI-RADS Category 2: Benign Finding(s) 3342F
== END ==
PROVIDERS: PCP Family Medicine; Referring Provider Family Medicine; Visit Provider Family Medicine
DX: Z12.31 Encounter for screening mammogram for malignant neoplasm of breast (principal); Z80.3 Family history of malignant neoplasm of breast
CPT/HCPCS: 77063; 77067

== ENCOUNTER → 2021-12-13 09:28 | Outpatient (CLI) | payer MEDICARE, SELFPAY ==
--- NOTE | 2021-12-13 09:29 | DI.RAD.S_ITS ---
PROCEDURE: XR CERVICAL SPINE 2V OR 3V INDICATIONS: neck pain TECHNIQUE: 3 view(s) of the cervical spine were acquired. COMPARISON: None. FINDINGS: Bones: No fractures or dislocations to the C7 level. The lateral masses of C1 appear intact on the odontoid view. No suspicious bony lesions. There is degenerative disc disease, moderate at C5-C6 and C6-C7. Bilateral facet arthropathy, most pronounced and severe at C3-C4, C4-C5 and C5-C6 bilaterally and C6-C7 on the right. Soft tissues: No prevertebral soft tissue swelling. IMPRESSION: 1. Multilevel spondylosis in cervical spine. Dictated by: Margareth Mckeon M.D. on 12/13/2021 at 12:46 Approved by: Margareth Mckeon M.D. on 12/13/2021 at 12:49
== END ==
PROVIDERS: PCP Family Medicine; Referring Provider Family Medicine; Visit Provider Family Medicine
DX: M54.2 Cervicalgia (principal); M47.812 Spondylosis without myelopathy or radiculopathy, cervical region
CPT/HCPCS: 72040

== ENCOUNTER 2022-02-14 09:00 | Outpatient (RCR) | payer MEDICARE, SELFPAY ==
--- NOTE | 2022-02-07 17:31 | PT.OPPOC ---
Physical, Occupational & Speech Therapy At [facility] Current Diagnoses Cervicalgia (02/07/22) Abnormal posture (02/07/22) Visit Care Team Role Provider Type Giovanni Bustos MD Attending Provider Physician Primary Care Provider Referring Provider Specialty: Family Practice Address: [address] [place] [address] Email: [email or web address] Plan Of Care PT-OP-T Assessment and Plan Start: 02/04/22 13:29 Freq: Status: Active Protocol: Document 02/07/22 13:45 AW (Rec: 02/08/22 17:29 AW [id number]) Physical Therapy Assessment Rehab Potential Rehabilitation Potential Excellent Evaluation Complexity Number of Personal Factors/Comorbidities 0 Number of Body Systems Impaired 1-2 Clinical Presentation at Evaluation Stable Impairments Impairments Functional Activities,Pain, Posture,ROM,Strength Goals Three Impairment functional activities Retirement Goal (LTG) Pt will tolerate using her arms overhead such as for painting for 30 minutes without neck pain LTG Duration 04/18/22 Two Impairment neck pain Church History Teacher Goal (LTG) Alice will report 0/10 average numeric pain rating for the past one week LTG Duration 04/18/22 One Impairment HEP Short Term Goal (STG) Alice will be instructed in HEP for neck and shoulder strength as well as postural awareness STG Duration 03/07/22 Church History Teacher Goal (LTG) Alice will be independent with HEP for neck and shoulder strength as well as postural awareness Assessment Summary 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 She also had sudden onset dizziness with head rotation but that has resolved with self- administered Sandra maneuver and meclizine. She is doing quite well at this evaluation and reports pain primarily with cervical extension and lateral flexion. She has no red flags and is very appropriate for PT intervention to improve her postural awareness and to build resilience in her neck and shoulders. Physical Therapy Plan Frequency and Duration Frequency of Treatment 1x/Week Duration of Treatment 10 weeks Plan of Care Start Date 02/07/22 Plan of Care End Date 11/16/22 Therapeutic Interventions Therapeutic Interventions Home Exercise Program,Manual Therapy,Neuromuscular Re- education,Self-Care/Home Management,Taping,Therapeutic Activities,Therapeutic Exercises Modalities Cold Pack/Ice Massage,Electric Stimulation,Hot Packs Next Visit Focus/Plan Next Note Type Treatment Note Next Visit Plan Cervical AROM. STM cervical paraspinals. Review DNF endurance training. Consider isometric strengthening for cervical musculature. Quadruped for neck stability when appropriate. Plan of Care Dates Plan of Care Start Date 02/07/22 Plan of Care End Date 04/18/22 Electronically Signed by: Sol Vance, PT 02/08/22 2193 If you are in agreement with this Plan of Care, please return a signed and dated copy. I have reviewed this Plan of Care and certify that the skilled therapy services above are required to meet the patient?s needs. Physician Signature Date Printed Name and Credentials Clinical Instructor Signature Printed Name and Credentials
--- NOTE | 2022-02-07 17:31 | PT.OIE ---
Current Diagnoses Cervicalgia (02/07/22) Abnormal posture (02/07/22) Past Medical History (Last Reviewed 07/14/18 @ 13:59 by Kasey Valentin LPN) Chicken pox (~1949) Hypertension Hypothyroidism (~2012) Measles (~1950) Mumps (~1950) Osteopenia Rubella (~1950) Past Surgical History (Last Reviewed 07/14/18 @ 13:59 by Kasey Valentin LPN) Anesthesia History of breast augmentation (~02/2011) History of breast augmentation (~06/2012) Status post appendectomy Status post tubal ligation (~1977) Visit Care Team Role Provider Type Giovanni Bustos MD Attending Provider Physician Primary Care Provider Referring Provider Specialty: [facility] Address: [address] [place] [address] Email: [email or web address] Physical Therapy Initial Evaluation PT-OP-A Visit Information Start: 02/04/22 13:29 Freq: Status: Active Protocol: Document 02/07/22 13:45 AW (Rec: 02/04/22 14:25 AW [id number]) Out-Patient Physical Therapy Visit Information Visit Information Visit Type Initial Evaluation Visit Start Time 13:00 Visit Stop Time 13:45 Total Visit Minutes 45 Visit Number 1 Evaluation Information Evaluation Date 02/07/22 PT-OP-B Current Condition Start: 02/04/22 13:29 Freq: Status: Active Protocol: Document 02/07/22 13:45 AW (Rec: 02/04/22 14:25 AW [id number]) Current Condition History of Current Condition Onset Date >1 year Current Complaints neck and shoulder pain, stiffness History of Current Condition Over a year ago, Alice painted her ceiling and felt very sore in her neck almost immediately. Had room-spinning dizziness that night. Self- administered Sandra and meclizine were helpful and Alice does not really experience that kind of dizziness any longer. She can turn over in bed without provoking dizziness but does sometimes get the spinning sensation during yoga positions that are inverted and involve turning the head. She has modified her reading position to keep from having to look down. Deep tissue massage has been helpful. Pain is mild and is mostly midline in the neck. Prior Treatments and Tests Cervical spine x-ray 12/13/21: There is degenerative disc disease, moderate at C5-C6 and C6-C7. Bilateral facet arthropathy, most pronounced and severe at C3-C4, C4-C5 and C5-C6 bilaterally and C6-C7 on the right. Treatment Goals Patient/Caregiver Goals Learn how to strengthen neck. Be able to look up with improved ease for painting projects. Prior Functional Status Baseline Function- ADL's Independent Current Functional Impairments (Reported) Functional Limitations- ADL's Occasional dizziness when looking up. PT-OP-C Subjective Start: 02/04/22 13:29 Freq: Status: Active Protocol: Document 02/07/22 13:45 AW (Rec: 02/08/22 17:02 AW [id number]) Patient Questionnaires Neck Disability Index NDI Score 4 Neck Disability Index Impairment 1 to 19% Impaired (Score 1-9) Quick Dash- Upper Extremity Quick Dash UE Score 2.3 Quick Dash UE Impairment 1 to 19% Impaired (Score 1-19) OP-PT Pain Assessment Pain Assessment Grid Paper Pain Assessment Grid Completed Yes: Scanned to EMR PT-OP-F Manual Assessment Start: 02/04/22 13:29 Freq: Status: Active Protocol: Document 02/07/22 13:45 AW (Rec: 02/08/22 17:05 AW [id number]) Manual Assessments Soft Tissue Assessment Soft Tissue Mobility Assessment No increased tone in bilateral upper traps. Pt is tender to palpation in cervical paraspinals C3-C6. PT-OP-H Neuro Start: 02/04/22 13:29 Freq: Status: Active Protocol: Document 02/07/22 13:45 AW (Rec: 02/08/22 17:05 AW [id number]) Sensation Evaluation Gross Sensation Gross Sensation WNL PT-OP-J Posture/Palpation/Skin Start: 02/04/22 13:29 Freq: Status: Active Protocol: Document 02/07/22 13:45 AW (Rec: 02/08/22 17:14 AW [id number]) Posture Evaluation Comments Posture Comments Slight forward head but generally well-aligned. Rounded shoulders bilaterally. PT-OP-K Range of Motion Start: 02/04/22 13:29 Freq: Status: Active Protocol: Document 02/07/22 13:45 AW (Rec: 02/08/22 17:14 AW [id number]) Cervical Spine Range of Motion Cervical Spine Active Flexion 55 Extension 30 Rotation Left 55 Rotation Right 55 Lateral Flexion Left 25 Lateral Flexion Right 25 ROM Limitations Pain Shoulder Goniometric Range of Motion Shoulder bilat Flexion 165 Abduction 165 External Rotation at 0 degrees Abduction 80 Internal Rotation Behind Back (text) T8 PT-OP-L Special Tests Start: 02/04/22 13:29 Freq: Status: Active Protocol: Document 02/07/22 13:45 AW (Rec: 02/08/22 17:14 AW [id number]) Special Tests Cervical Spine Special Tests Traction Test Results relieving Spurling's Test Test Results negative bilaterally PT-OP-M Strength Start: 02/04/22 13:29 Freq: Status: Active Protocol: Document 02/07/22 13:45 AW (Rec: 02/08/22 17:14 AW [id number]) Cervical Spine Strength Cervical Spine Manual Muscle Testing Flexion (C1-2) 4+ Good+ Extension 4 Good Rotation Left 4+ Good+ Rotation Right 4+ Good+ Lateral Flexion Left (C3) 4+ Good+ Lateral Flexion Right (C3) 4+ Good+ Shoulder Strength Shoulder Manual Muscle Testing bilat Flexion 5 Normal Abduction (C5) 4+ Good+ External Rotation 4+ Good+ Internal Rotation 5 Normal Elbow/Forearm Strength Elbow and Forearm Manual Muscle Testing bilat Flexion (C6) 5 Normal Extension (C7) 5 Normal PT-OP-Q Treatments Start: 02/04/22 13:29 Freq: Status: Active Protocol: Document 02/07/22 13:45 AW (Rec: 02/08/22 17:29 AW [id number]) Therapeutic Exercises Supine Exercises DNF endurance Supine Exercise Name DNF endurance Reps/Minutes 10 SH x 5 Comments HEP Sitting Exercises cervical AROM Sitting Exercise Name cervical AROM - rotation and lateral flexion Comments HEP Manual Therapy Treatment Soft Tissue Mobilization C/S paraspinals Body Location C/S paraspinals Mobilization Type Strumming,Sustained Pressure Intensity/Depth Moderate Body Position Hooklying Manual Traction Cervical Details 1 min x 3 Body Position Hooklying Comments relieving Self-Care/Home Management Treatment Education Patient Education Home Exercise Program,Pain Management Other Education Discussed evaluation findings and proposed plan of care to improve cervical ROM and strength, shoulder strength, and postural awareness. Pt understood and agreed. PT-OP-T Assessment and Plan Start: 02/04/22 13:29 Freq: Status: Active Protocol: Document 02/07/22 13:45 AW (Rec: 02/08/22 17:29 AW [id number]) Physical Therapy Assessment Rehab Potential Rehabilitation Potential Excellent Evaluation Complexity Number of Personal Factors/Comorbidities 0 Number of Body Systems Impaired 1-2 Clinical Presentation at Evaluation Stable Impairments Impairments Functional Activities,Pain, Posture,ROM,Strength Goals Three Impairment functional activities Retirement Goal (LTG) Pt will tolerate using her arms overhead such as for painting for 30 minutes without neck pain LTG Duration 04/18/22 Two Impairment neck pain Farm Butcher Goal (LTG) Alice will report 0/10 average numeric pain rating for the past one week LTG Duration 04/18/22 One Impairment HEP Short Term Goal (STG) Alice will be instructed in HEP for neck and shoulder strength as well as postural awareness STG Duration 03/07/22 Retirement Goal (LTG) Alice will be independent with HEP for neck and shoulder strength as well as postural awareness Assessment Summary 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 She also had sudden onset dizziness with head rotation but that has resolved with self- administered Sandra maneuver and meclizine. She is doing quite well at this evaluation and reports pain primarily with cervical extension and lateral flexion. She has no red flags and is very appropriate for PT intervention to improve her postural awareness and to build resilience in her neck and shoulders. Physical Therapy Plan Frequency and Duration Frequency of Treatment 1x/Week Duration of Treatment 10 weeks Plan of Care Start Date 02/07/22 Plan of Care End Date 04/18/22 Therapeutic Interventions Therapeutic Interventions Home Exercise Program,Manual Therapy,Neuromuscular Re- education,Self-Care/Home Management,Taping,Therapeutic Activities,Therapeutic Exercises Modalities Cold Pack/Ice Massage,Electric Stimulation,Hot Packs Next Visit Focus/Plan Next Note Type Treatment Note Next Visit Plan Cervical AROM. STM cervical paraspinals. Review DNF endurance training. Consider isometric strengthening for cervical musculature. Quadruped for neck stability when appropriate.
--- NOTE | 2022-02-14 10:43 | PT.OTN ---
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 Had room-spinning dizziness that night. Self- administered Sandra and meclizine were helpful and Alice does not really experience that kind of dizziness any longer. She can turn over in bed without provoking dizziness but does sometimes get the spinning sensation during yoga positions that are inverted and involve turning the head. She has modified her reading position to keep from having to look down. Deep tissue massage has been helpful. Pain is mild and is mostly midline in the neck. Prior Treatments and Tests Cervical spine x-ray 12/13/21: There is degenerative disc disease, moderate at C5-C6 and C6-C7. Bilateral facet arthropathy, most pronounced and severe at C3-C4, C4-C5 and C5-C6 bilaterally and C6-C7 on the right. Treatment Goals Patient/Caregiver Goals Learn how to strengthen neck. Be able to look up with improved ease for painting projects. Prior Functional Status Baseline Function- ADL's Independent Current Functional Impairments (Reported) Functional Limitations- ADL's Occasional dizziness when looking up. PT-OP-C Subjective Start: 02/04/22 13:29 Freq: Status: Active Protocol: Document 02/14/22 09:01 AW (Rec: 02/14/22 09:47 AW [id number]) OP-PT Subjective Patient Comments Patient Comments Feeling pretty good. I might not need PT after all. PT-OP-F Manual Assessment Start: 02/04/22 13:29 Freq: Status: Active Protocol: Document 02/07/22 13:45 AW (Rec: 02/08/22 17:05 AW [id number]) Manual Assessments Soft Tissue Assessment Soft Tissue Mobility Assessment No increased tone in bilateral upper traps. Pt is tender to palpation in cervical paraspinals C3-C6. PT-OP-H Neuro Start: 02/04/22 13:29 Freq: Status: Active Protocol: Document 02/07/22 13:45 AW (Rec: 02/08/22 17:05 AW [id number]) Sensation Evaluation Gross Sensation Gross Sensation WNL PT-OP-J Posture/Palpation/Skin Start: 02/04/22 13:29 Freq: Status: Active Protocol: Document 02/07/22 13:45 AW (Rec: 02/08/22 17:14 AW [id number]) Posture Evaluation Comments Posture Comments Slight forward head but generally well-aligned. Rounded shoulders bilaterally. PT-OP-K Range of Motion Start: 02/04/22 13:29 Freq: Status: Active Protocol: Document 02/07/22 13:45 AW (Rec: 02/08/22 17:14 AW [id number]) Cervical Spine Range of Motion Cervical Spine Active Flexion 55 Extension 30 Rotation Left 55 Rotation Right 55 Lateral Flexion Left 25 Lateral Flexion Right 25 ROM Limitations Pain Shoulder Goniometric Range of Motion Shoulder bilat Flexion 165 Abduction 165 External Rotation at 0 degrees Abduction 80 Internal Rotation Behind Back (text) T8 PT-OP-L Special Tests Start: 02/04/22 13:29 Freq: Status: Active Protocol: Document 02/07/22 13:45 AW (Rec: 02/08/22 17:14 AW [id number]) Special Tests Cervical Spine Special Tests Traction Test Results relieving Spurling's Test Test Results negative bilaterally PT-OP-M Strength Start: 02/04/22 13:29 Freq: Status: Active Protocol: Document 02/07/22 13:45 AW (Rec: 02/08/22 17:14 AW [id number]) Cervical Spine Strength Cervical Spine Manual Muscle Testing Flexion (C1-2) 4+ Good+ Extension 4 Good Rotation Left 4+ Good+ Rotation Right 4+ Good+ Lateral Flexion Left (C3) 4+ Good+ Lateral Flexion Right (C3) 4+ Good+ Shoulder Strength Shoulder Manual Muscle Testing bilat Flexion 5 Normal Abduction (C5) 4+ Good+ External Rotation 4+ Good+ Internal Rotation 5 Normal Elbow/Forearm Strength Elbow and Forearm Manual Muscle Testing bilat Flexion (C6) 5 Normal Extension (C7) 5 Normal PT-OP-Q Treatments Start: 02/04/22 13:29 Freq: Status: Active Protocol: Document 02/14/22 09:01 AW (Rec: 02/14/22 09:47 AW [id number]) Cardio Equipment Upper Body Ergometer (UBE) Duration (Minutes) 5 RPM 75 Seat Position 9 Height 3 Other f/b Therapeutic Exercises Supine Exercises DNF endurance Supine Exercise Name DNF endurance Reps/Minutes 10 SH x 5 Comments HEP Sitting Exercises cervical isometrics Sitting Exercise Name cervical isometrics Side bilateral Resistance rot, lat flex, flex Comments HEP cervical AROM Sitting Exercise Name cervical AROM - rotation and lateral flexion Comments HEP Standing Exercises bent over row Standing Exercise Name bent over row Resistance 5# db extension Standing Exercise Name extension Resistance TB2, wand Comments HEP row Standing Exercise Name row Resistance TB3 Comments HEP Manual Therapy Treatment Soft Tissue Mobilization C/S paraspinals Body Location C/S paraspinals Mobilization Type Strumming,Sustained Pressure Intensity/Depth Moderate Body Position Hooklying Manual Traction Cervical Details 1 min x 3 Body Position Hooklying Comments relieving Self-Care/Home Management Treatment Education Patient Education Home Exercise Program,Posture Other Education Cues in all exercises to maintain cervical neutral as pt tends to over extend. PT-OP-T Assessment and Plan Start: 02/04/22 13:29 Freq: Status: Active Protocol: Document 02/14/22 09:01 AW (Rec: 02/14/22 09:47 AW [id number]) Physical Therapy Assessment Goals Three Impairment functional activities Intermediate Goal (LTG) Pt will tolerate using her arms overhead such as for painting for 30 minutes without neck pain LTG Duration 04/18/22 Two Impairment neck pain Fur Ironer Goal (LTG) Alice will report 0/10 average numeric pain rating for the past one week LTG Duration 04/18/22 One Impairment HEP Short Term Goal (STG) Alice will be instructed in HEP for neck and shoulder strength as well as postural awareness STG Duration 03/07/22 Intermediate Goal (LTG) Alice will be independent with HEP for neck and shoulder strength as well as postural awareness Assessment Summary Assessment Alice benefits from cues in all exercises to avoid cervical over-extension. She has good understanding of same and is independent by session 's end with self-correction. She feels good with home exercise program and requests discharge from PT at this time . Physical Therapy Plan Frequency and Duration Frequency of Treatment 1x/Week Duration of Treatment 10 weeks Plan of Care Start Date 02/07/22 Plan of Care End Date 04/18/22 Therapeutic Interventions Therapeutic Interventions Home Exercise Program,Manual Therapy,Neuromuscular Re- education,Self-Care/Home Management,Taping,Therapeutic Activities,Therapeutic Exercises Modalities Cold Pack/Ice Massage,Electric Stimulation,Hot Packs Discharge Physical Therapy Discharge Reasons Patient Request Discharge Comments Pt feels good perhaps because it took so long to get in for therapy evaluation. She is independent with HEP and feels ok discharging at this time.
== END 2022-02-16 09:34 ==
LOC: PHYS 09:00
PROVIDERS: PCP Family Medicine; Referring Provider Family Medicine; Visit Provider Family Medicine
DX: M54.2 Cervicalgia (principal); R29.3 Abnormal posture
CPT/HCPCS: 97110; 97140; 97161

== ENCOUNTER → 2022-08-14 08:15 | Outpatient (CLI) | payer MEDICARE, SELFPAY ==
--- NOTE | 2022-08-14 | DI.MG.S_ITS ---
BILATERAL DIGITAL SCREENING MAMMOGRAM 3D/2D WITH CAD WITH AUGMENTATION: 08/14/2022 CLINICAL: Routine screening. Family history of breast cancer. Comparison is made to exams dated: 08/07/2021 mammogram, 07/19/2020 mammogram, and 06/26/2019 mammogram - [facility]. Both breasts are heterogeneously dense, which may obscure small masses (category c / 51-75% glandular tissue). Current study was also evaluated with a Computer Aided Detection (CAD) system. Bilateral breast implants are stable. There are benign calcifications in both breasts. No significant masses, calcifications, or other findings are seen in either breast. There has been no significant interval change. IMPRESSION: BENIGN There is no mammographic evidence of malignancy. A 1 year screening mammogram is recommended. Based on the Tyrer Cuzick model (a risk assessment model) the patient's lifetime risk is 4.7% and her 10 year risk is 3.8%. According to the ACR, ACS, and NCCN guidelines, an annual breast MRI exam along with mammogram is recommended if the patient's lifetime risk is 20% or greater. This exam was interpreted at Station ID: [id number]. NOTE: For mammograms, a report in lay terms will be sent to the patient. Approximately 15% of breast malignancies will not be visualized mammographically. In the management of a palpable breast mass, a negative mammogram must not discourage biopsy of a clinically suspicious lesion. Electronically Signed By: Dwayne mahan/grecia:08/14/2022 09:02:08 letter sent: Normal Exam ACR BI-RADS Category 2: Benign Finding(s) 3342F
== END ==
PROVIDERS: PCP Family Medicine; Referring Provider Family Medicine; Visit Provider Family Medicine
DX: Z12.31 Encounter for screening mammogram for malignant neoplasm of breast (principal); Z80.3 Family history of malignant neoplasm of breast
CPT/HCPCS: 77063; 77067

== ENCOUNTER → 2022-08-16 15:49 | Outpatient (CLI) | payer MEDICARE, SELFPAY ==
--- NOTE | 2022-08-16 15:50 | DI.RAD.S_ITS ---
PROCEDURE: XR FOOT LT MIN 3V INDICATIONS: foot toe pain TECHNIQUE: 3 views of the foot were acquired. COMPARISON: None. FINDINGS: Bones: Mild bony deformity of the 4th metatarsal neck and fracture cannot be excluded.. No suspicious bony lesions. Mild hallux valgus metatarsus prima varus alignment and medial bunion. Mild 1st MTP and diffuse interphalangeal joint space narrowing with periarticular osteophyte formation. Mild midfoot joint space narrowing with dorsal osteophytosis. Prominent plantar calcaneal enthesophyte. Soft tissues: No tibiotalar joint effusion. Achilles tendon appears normal. IMPRESSION: 1. Bony deformity of the 4th metatarsal head/neck and fracture cannot be excluded and acuity is indeterminate. Recommend correlation to point tenderness to exclude acute fracture. 2. Hallux valgus alignment and medial bunion. 3. Mild midfoot and forefoot joint degeneration. 4. Calcaneal enthesopathy. Dictated by: Reyes Garcia [facility] Interpreted: Merced Rahman MD on 08/16/2022 at 16:10 Transcribed by: SHARRI on 08/16/2022 at 16:13 Approved by: Merced Rahman M.D. on 08/16/2022 at 20:23
== END ==
PROVIDERS: PCP Family Medicine; Referring Provider Family Medicine; Visit Provider Family Medicine
DX: M20.12 Hallux valgus (acquired), left foot (principal); M21.612 Bunion of left foot; M19.072 Primary osteoarthritis, left ankle and foot; M77.32 Calcaneal spur, left foot; M21.6X2 Other acquired deformities of left foot; M79.672 Pain in left foot; M79.675 Pain in left toe(s)
CPT/HCPCS: 73630

== ENCOUNTER → 2022-09-17 10:47 | Outpatient (CLI) | payer MEDICARE, SELFPAY ==
[2022-09-17 12:42] LABS: TSH w/ Reflex to FT4 0.23 uIU/mL (0.47-4.68)
[2022-09-17 13:16] LABS: Free T4, Direct Thyroxine 1.25 ng/dL (0.78-2.19)
== END ==
PROVIDERS: PCP Family Medicine; Referring Provider Family Medicine; Visit Provider Family Medicine
DX: E03.9 Hypothyroidism, unspecified (principal)
CPT/HCPCS: 36415; 84439; 84443

== ENCOUNTER → 2023-01-16 07:00 | Outpatient (CLI) | payer MEDICARE, SELFPAY ==
[2023-01-16 08:08] LABS: Add Manual Diff / Slide Review NO; Basophils Absolute Auto 0 /uL (0-100); Basophils Percent Auto 0.4 % (0-2); Eosinophils Absolute Auto 100 /uL (0-450); Eosinophils Percent Auto 1.6 % (2-4); Hematocrit 40.3 % (36-46); Hemoglobin 14.2 g/dL (12.0-16.0); Lymphocytes Absolute Auto 2000 /uL (1100-4500); Mean Corpuscular HGB Conc 35.2 % (30-36); Mean Corpuscular Hemoglobin 32.5 PG (26-34); Mean Corpuscular Volume 92.4 fL (80-100); Monocytes Absolute Auto 500 /uL (0-900); Monocytes Percent Auto 9.6 % (3-14); Neutrophils Absolute Auto 2900 /uL (1500-7000); Neutrophils Percent Auto 52.4 % (50-75); Platelet Count 223 X10^3/uL (150-400); Red Blood Cell Count 4.36 X10^6/uL (4.0-5.2); Red Cell Distribution Width 12.7 % (11.6-14.8); White Blood Cell Count 5.6 X10^3/uL (4.5-11.0)
[2023-01-16 08:20] LABS: Alanine Aminotransferase 42 IU/L (<35); Albumin Globulin Ratio 1.7 (1.0-2.8); Alkaline Phosphatase 74 U/L (38-126); Aspartate Aminotransferase 37 IU/L (14-36); BUN Creatinine Ratio 21.3 (6-22); Bilirubin Total 0.7 mg/dL (0.2-1.3); Blood Urea Nitrogen 16 mg/dL (7-17); Calcium 9.4 mg/dL (8.4-10.2); Carbon Dioxide 30 mmol/L (22-32); Chloride 99 mmol/L (98-107); Cholesterol 144 mg/dL (140-199); Estimated Glomerular Filt Rate > 60 mL/min (>60); Globulin 2.4 g/dL (1.7-4.1); Glucose 103 mg/dL (80-110); HDL Cholesterol 66 mg/dL (40-60); HEMOLYSIS < 15 (0-50); LDL Cholesterol Calculated 61 mg/dL (<100); Potassium 4.6 mmol/L (3.4-5.1); Sodium 135 mmol/L (137-145); Total Protein 6.4 g/dL (6.3-8.2); Triglycerides 84 mg/dL (35-150)
== END ==
PROVIDERS: PCP Family Medicine; Referring Provider Family Medicine; Visit Provider Family Medicine
DX: E03.9 Hypothyroidism, unspecified (principal); E78.5 Hyperlipidemia, unspecified; I10 Essential (primary) hypertension
CPT/HCPCS: 36415; 80053; 80061; 85025

== ENCOUNTER → 2023-08-20 10:14 | Outpatient (CLI) | payer MEDICARE, SELFPAY ==
--- NOTE | 2023-08-20 10:16 | DI.RAD.S_ITS ---
Bone Density Report Name: LIZ CONNOLLY Age: 73 Sex: Female Ethnicity: White Date of : 1950 Indication: osteopenia; Referring Provider: SYLVIA PINA Study: Bone densitometry was performed. Exam Date: August 20, 2023 Accession number: [id number] Bone Density: Region BMD T-score Z-score Classification AP Spine(L1-L4) 0.820 -2.1 0.3 Osteopenia Femoral Neck (Left) 0.700 -1.3 0.7 Osteopenia Total Hip (Left) 0.835 -0.9 0.9 Normal Femoral Neck (Right) 0.676 -1.6 0.5 Osteopenia Total Hip (Right) 0.820 -1.0 0.7 Normal Total Hip Mean 0.827 -1.0 0.8 Normal World Health Organization criteria for BMD impression classify patients as: Normal (T-score at or above -1.0), Osteopenia (T-score between -1.0 and -2.5), or Osteoporosis (T-score at or below -2.5). 10-year Fracture Risk(1): Major Osteoporotic Fracture 11% Hip Fracture 2.1% Reported Risk Factors: [place] (), Neck BMD=0.676, BMI=26.9 (1) FRAX(R) Version 3.08. Fracture probability calculated for an untreated patient. Fracture probability may be lower if the patient has received treatment. Previous Exams: -- Region Exam Age BMD T-score BMD Change BMD Change Date g/cm2 vs Baseline vs Previous -- AP Spine (L1-L4) 08/20/2023 73 0.820 -2.1 -0.035 (-4.1%)# -0.053 (-6.1%)# 01/02/2021 70 0.873 -1.6 0.018 (2.1%) -0.004 (-0.5%) 03/23/2014 63 0.877 -1.5 0.022 (2.6%) 0.011 (1.3%) 05/18/2011 61 0.865 -1.7 0.010 (1.2%) 0.010 (1.2%) 08/14/2007 57 0.855 -1.7 Total Hip(Left) 08/20/2023 73 0.835 -0.9 -0.034 (-3.9%)# -0.008 (-0.9%)# 01/02/2021 70 0.843 -0.8 -0.026 (-3.0%) -0.018 (-2.1%) 03/23/2014 63 0.861 -0.7 -0.008 (-0.9%) -0.005 (-0.6%) 05/18/2011 61 0.866 -0.6 -0.003 (-0.3%) -0.003 (-0.3%) 08/14/2007 57 0.869 -0.6 Total Hip(Right) 08/20/2023 73 0.820 -1.0 -0.030 (-3.5%)# 0.021 (2.6%)# 01/02/2021 70 0.799 -1.2 -0.051 (-6.0%)* -0.056 (-6.6%)* 03/23/2014 63 0.856 -0.7 0.006 (0.7%) 0.015 (1.8%) 05/18/2011 61 0.840 -0.8 -0.009 (-1.1%) -0.009 (-1.1%) 08/14/2007 57 0.850 -0.8 -- *Denotes significance at 95% confidence level, LSC for AP Spine = 0.022 g/cm2, LSC for Total Hip = 0.027 g/cm2 # Denotes dissimilar scan types or analysis methods Impression: The patient has low bone mass, based on the Total Spine T-score. The patient has an estimated ten-year risk of hip fracture of 2.1% and an estimated ten-year risk of major fracture of 11%, based on the WHO FRAX algorithm. No significant bone loss was observed. Discussion: BONE DENSITY IS LOW AT ONE OR MORE SKELETAL SITES. This patient's lowest T-score is low at one or more skeletal sites. It meets the World Health Organization's (WHO) criteria for low bone mass (T-score between -1.0 and -2.5). The patient's 10-year risk of fracture as calculated by FRAX is less than the threshold where pharmacological therapy is recommended by the National Osteoporosis Foundation (NOF). However, all treatment decisions require clinical judgment and consideration of individual patient factors, including patient preferences, comorbidities, previous drug use, risk factors not captured in the FRAX model (e.g., frailty, falls, vitamin D deficiency, increased bone turnover, interval significant decline in bone density) and possible under or overestimation of fracture risk by FRAX. The patient should follow a healthful lifestyle (good nutrition with adequate calcium and vitamin D, and appropriate weight-bearing exercise). Follow-Up: Consider repeating this study in 2 to 3 years to reassess this patient's status, or sooner if there is some new clinical indication. Reported by: FARIHA MARK M.D. on 08/20/2023 10:37:00 AM.
--- NOTE | 2023-08-20 10:16 | DI.RAD.S_ITS ---
PROCEDURE: XR LUMBAR SPINE 2-3V INDICATIONS: LOW BACK PAIN TECHNIQUE: 3 views of the lumbar spine were acquired. COMPARISON: None. FINDINGS: Bones: 5 [id number] vertebrae are present. There is normal bony alignment. No acute vertebral body compression fractures. No suspicious bony lesions. Moderate spondylitic changes with degenerative endplate changes, disc space loss, and endplate osteophyte formation. Moderate mid and lower lumbar facet arthropathy. Findings are most severe at L4-5 and L5-S1. Soft tissues: Overlying bowel gas pattern is normal. No suspicious soft tissue calcifications. IMPRESSION: No acute bony abnormality. Moderate multilevel lumbar spondylosis. Dictated by: Bi Sierra M.D. on 08/20/2023 at 13:11 Approved by: Bi Sierra M.D. on 08/20/2023 at 13:12
== END ==
LOC: RAD 10:16
PROVIDERS: PCP Family Medicine; Referring Provider Family Medicine; Visit Provider Family Medicine
DX: M47.816 Spondylosis without myelopathy or radiculopathy, lumbar region (principal); M47.817 Spondylosis without myelopathy or radiculopathy, lumbosacral region; M54.42 Lumbago with sciatica, left side; M85.88 Other specified disorders of bone density and structure, other site
CPT/HCPCS: 72100; 77080

== ENCOUNTER → 2023-09-03 12:45 | Outpatient (CLI) | payer MEDICARE, SELFPAY ==
--- NOTE | 2023-09-03 | DI.MG.S_ITS ---
BILATERAL DIGITAL SCREENING MAMMOGRAM 3D/2D WITH CAD WITH AUGMENTATION: 09/03/2023 CLINICAL: Routine screening. Family history of breast cancer. Comparison is made to exams dated: 08/14/2022 mammogram, 08/07/2021 mammogram, 07/19/2020 mammogram, and 06/26/2019 mammogram - [facility]. Both breasts are heterogeneously dense, which may obscure small masses (category c / 51-75% glandular tissue). Current study was also evaluated with a Computer Aided Detection (CAD) system. Bilateral breast implants are stable. There are benign calcifications in both breasts. No significant masses, calcifications, or other findings are seen in either breast. There has been no significant interval change. IMPRESSION: BENIGN There is no mammographic evidence of malignancy. A 1 year screening mammogram is recommended. Based on the Tyrer Cuzick model (a risk assessment model) the patient's lifetime risk is 4.4% and her 10 year risk is 3.9%. According to the ACR, ACS, and NCCN guidelines, an annual breast MRI exam along with mammogram is recommended if the patient's lifetime risk is 20% or greater. This exam was interpreted at Station ID: [id number]. NOTE: For mammograms, a report in lay terms will be sent to the patient. Approximately 15% of breast malignancies will not be visualized mammographically. In the management of a palpable breast mass, a negative mammogram must not discourage biopsy of a clinically suspicious lesion. Electronically Signed By: Dwayne mahan/grecia:09/03/2023 15:54:08 letter sent: Normal Exam ACR BI-RADS Category 2: Benign Finding(s) 3342F
== END ==
PROVIDERS: PCP Family Medicine; Referring Provider Family Medicine; Visit Provider Family Medicine
DX: Z12.31 Encounter for screening mammogram for malignant neoplasm of breast (principal); Z80.3 Family history of malignant neoplasm of breast; R92.333 Mammographic heterogeneous density, bilateral breasts
CPT/HCPCS: 77063; 77067

== ENCOUNTER 2024-01-31 17:16 | Emergency (ER) | payer MEDICARE, SELFPAY ==
[2024-01-31 17:20] VITALS: BP 195/93; PULSE 79; RESP 16; TEMP 36.3; O2SAT 97; BMI 27.1
--- NOTE | 2024-01-31 20:15 | ED_ITS ---
HPI - Wound/Laceration General Chief Complaint: Wound/Laceration Stated Complaint: Distal L Index Finger Laceration Time Seen by Provider: 01/31/24 18:05 Source: patient Mode of arrival: Ambulatory Limitations: no limitations History of Present Illness HPI narrative: 73-year-old female who is here for evaluation of a laceration to the tip of her index finger. She states she cut it this evening when she was preparing dinner. She stated that it was a clean knife. She he was up-to-date on her tetanus. She stated that she could not get the bleeding to stop at home which is what brought her here in the emergency department. Related Data Previous Rx's Medication Instructions Recorded estradiol 0.01% (0.1 mg/gram) 1 appful vaginal QDAY post 12/09/12 vaginal cream (Estrace) menopausal vaginal dryness #42.5 grams diclofenac sodium 1 % topical gel 2 gram topical BIDP PRN pain #100 11/25/18 (Voltaren) grams lidocaine 4 % topical cream 1 applictn topical BID PRN pain #5 11/25/18 grams spironolactone 25 mg tablet 25 mg PO DAILY #90 tabs 02/25/23 hydrocortisone-pramoxine 2.5 %-1 % 1 applic NH TID-QID PRN 04/08/23 rectal cream hemorrhoids #30 grams lisinopril 20 mg tablet 20 mg PO DAILY #90 tabs 05/13/23 atorvastatin 40 mg tablet 40 mg PO QPM #90 tabs 10/07/23 levothyroxine 50 mcg tablet 50 mcg PO DAILY #90 tabs 10/07/23 lorazepam 1 mg tablet 1 mg PO QDAY PRN PRN anxiety #10 01/02/24 tabs Allergies Allergy/AdvReac Type Severity Reaction Status Date / Time No Known Drug Allergies Allergy Verified 01/02/24 10:16 Review of Systems Musculoskeletal Musculoskeletal: Reports system reviewed and no additional complaints, except as documented Integumentary/Breasts Skin/Breast: Reports system reviewed and no additional complaints, except as d ocumented Patient History Medical History Smoker Osteopenia Rubella (~1950) Mumps (~1950) Measles (~1950) Chicken pox (~1950) Hypothyroidism (~2012) Hypertension Surgical History Anesthesia Status post appendectomy Status post tubal ligation (~1977) History of breast augmentation (~06/2012) History of breast augmentation (~02/2011) Family History Father Heart disease Mother Stroke Brother GI bleed ETOHism Social History marital status: Smoking Status: Former smoker alcohol intake: current substance use type: does not use Smoking Status: Former smoker Exam Initial Vital Signs Initial Vital Signs: Vital Signs Temperature 97.3 F L 01/31/24 17:20 Pulse Rate 79 01/31/24 17:20 Respiratory Rate 16 01/31/24 17:20 Blood Pressure 195/93 H 01/31/24 17:20 Pulse Oximetry 97 01/31/24 17:20 Oxygen Delivery Method Room Air 01/31/24 17:20 Skin Other: 2 cm laceration of the tip of the left index finger. Neuro Sensory Exam: no sensory deficits noted Extrem Other: Full flexion-extension of the MCP PIP and PIP joint of the left index finger Procedures Laceration Repair Laceration 1: Site: other (Index finger) Size (cm): 2 Description: linear Depth: simple, single layer Local Anesthetic: other anesthetic (Finger block) Pre-repair: wound explored, irrigated extensively and deep structures i ntact Skin layer closed with: nylon Skin layer suture size: 4-0 Number of sutures: 6 Technique: simple, interrupted Nerve Block Nerve Block 1: Time out performed: Yes Local Anesthetic: lidocaine 1% Amount of anesthesia used (mL): 4 Side: left Nerve Blocks: digital Procedure Successful: Yes Patient Tolerated Procedure: No complications Course Orders Ordered: Discontinued Medications Bacitracin (Bacitracin Oint 0.9 Gm Pckt) 1 applic TOP NOW ONE Stop: 01/31/24 20:54 Last Admin: 01/31/24 21:00 Dose: 1 applic Documented By: JESSY Lidocaine HCl (Lidocaine 1% 20 Ml) 20 ml INJ INTRA-OP ONE Stop: 01/31/24 20:16 Last Admin: 01/31/24 20:29 Dose: 20 ml Documented By: JESSY Vital Signs Vital signs: Vital Signs - 8 hr 01/31/24 21:05 Temperature 97.3 F L Pulse Rate 76 Respiratory Rate 16 Blood Pressure 154/82 H Pulse Oximetry 98 Oxygen Delivery Method Room Air MDM - Wound/Laceration MDM Narrative Medical decision making narrative: Neurovascularly intact. After digital block the wound was cleaned. Deep structures intact. Closed as described above. Her tetanus is updated prior to this visit. Patient was given care instructions and return precautions. She expressed understanding and agreement with plan. Discharge Plan Departure Patient Disposition: Home Clinical Impression: Laceration Instructions: DI for Laceration Repair Activity Restrictions/Additional Instructions: The stitches do need to be removed in the next 7-10 days. You can go to the walk-in clinic or your primary doctor for this. You can keep the area clean with soap and water. Topical antibiotic ointment as appropriate. Return to the emergency department for new or worsening symptoms. Prescriptions: No Action diclofenac sodium [Voltaren] 1 % gel 2 gram Topical BIDP PRN (Reason: pain) Qty: 100 0RF lidocaine 4 % cream 1 applictn TOP BID PRN (Reason: pain) Qty: 5 1RF spironolactone 25 mg tablet 25 mg PO DAILY Qty: 90 3RF hydrocortisone-pramoxine 2.5-1 % cream 1 applic NH TID-QID PRN (Reason: hemorrhoids) Qty: 30 0RF estradiol [Estrace] 0.01 % (0.1 mg/gram) cream 1 appful Vaginal QDAY MDD 1 applicator Qty: 42.5 2RF lisinopril 20 mg tablet 20 mg PO DAILY Qty: 90 2RF levothyroxine 50 mcg tablet 50 mcg PO DAILY Qty: 90 3RF atorvastatin 40 mg tablet 40 mg PO QPM Qty: 90 3RF lorazepam 1 mg tablet 1 mg PO QDAY PRN PRN (Reason: anxiety) Qty: 10 0RF Referrals: Giovanni Bustos MD [Primary Care Provider] - Stand Alone Forms: Patient Portal/API
[2024-01-31] MEDS: LIDOCAINE 1% 20 ML INJ (20:29)
[2024-01-31] MEDS: BACITRACIN OINT 0.9 GM PCKT 1 APPLIC TOP (21:00)
[2024-01-31 21:05] VITALS: BP 154/82; PULSE 76; RESP 16; TEMP 36.3; O2SAT 98
== END 2024-01-31 21:05 | disposition home or self-care (01) ==
PROVIDERS: Emergency Provider Emergency Medicine; PCP Family Medicine
DX: S61.211A Laceration without foreign body of left index finger without damage to nail, initial encounter (principal); W26.0XXA Contact with knife, initial encounter
CPT/HCPCS: 12001; 64450; 99283

== ENCOUNTER → 2024-11-02 06:54 | Outpatient (CLI) | payer MEDICARE, SELFPAY ==
[2024-11-02 07:34] LABS: Add Manual Diff / Slide Review NO; Basophils Absolute Auto 0 /uL (0-100); Basophils Percent Auto 0.5 % (0-2); Eosinophils Absolute Auto 0 /uL (0-450); Eosinophils Percent Auto 0.7 % (2-4); Hematocrit 42.9 % (36-46); Hemoglobin 14.7 g/dL (12.0-16.0); Lymphocytes Absolute Auto 1900 /uL (1100-4500); Lymphocytes Percent Auto 33.6 % (25-40); Mean Corpuscular HGB Conc 34.2 % (30-36); Mean Corpuscular Hemoglobin 32.4 PG (26-34); Mean Corpuscular Volume 94.7 fL (80-100); Monocytes Absolute Auto 400 /uL (0-900); Monocytes Percent Auto 7.8 % (3-14); Neutrophils Absolute Auto 3200 /uL (1500-7000); Neutrophils Percent Auto 57.4 % (50-75); Platelet Count 227 X10^3/uL (150-400); Red Blood Cell Count 4.53 X10^6/uL (4.0-5.2); White Blood Cell Count 5.6 X10^3/uL (4.5-11.0)
[2024-11-02 08:00] LABS: Alanine Aminotransferase 38 IU/L (<35); Albumin 4.5 g/dL (3.5-5.0); Alkaline Phosphatase 79 U/L (38-126); Aspartate Aminotransferase 37 IU/L (14-36); BUN Creatinine Ratio 24.1 (6-22); Bilirubin Total 0.9 mg/dL (0.2-1.3); Blood Urea Nitrogen 19 mg/dL (7-17); Calcium 9.8 mg/dL (8.4-10.2); Carbon Dioxide 28 mmol/L (22-32); Chloride 99 mmol/L (98-107); Cholesterol 176 mg/dL (140-199); Estimated Glomerular Filt Rate > 60 mL/min (>60); Globulin 2.3 g/dL (1.7-4.1); Glucose 104 mg/dL (70-99); HDL Cholesterol 79 mg/dL (40-60); HEMOLYSIS < 15 (0-50); LDL Cholesterol Calculated 78 mg/dL (<100); Sodium 134 mmol/L (137-145); Total Protein 6.8 g/dL (6.3-8.2); Triglycerides 93 mg/dL (35-150)
[2024-11-02 08:24] LABS: TSH w/ Reflex to FT4 4.88 uIU/mL (0.47-4.68)
[2024-11-02 08:49] LABS: Free T4, Direct Thyroxine 1.34 ng/dL (0.78-2.19)
== END ==
PROVIDERS: PCP Family Medicine; Referring Provider Family Medicine; Visit Provider Family Medicine
DX: E78.2 Mixed hyperlipidemia (principal); E03.9 Hypothyroidism, unspecified; I10 Essential (primary) hypertension
CPT/HCPCS: 36415; 80053; 80061; 84439; 84443; 85025

== ENCOUNTER → 2024-11-17 15:43 | Outpatient (CLI) | payer MEDICARE, SELFPAY ==
--- NOTE | 2024-11-17 15:46 | DI.MG.S_ITS ---
MM screening mammo implant BI: 11/17/2024. BI-RADS: 2 CLINICAL: 74-year old female for bilateral screening mammogram. Tyrer-Cuzick lifetime risk of 2.8%. No personal or first-degree family history of breast cancer. The patient has bilateral implants. PRIOR EXAMS 09/03/2023, 08/14/2022, 08/07/2021, 07/19/2020, 06/26/2019, 05/12/2018, 01/07/2017, 01/04/2016. MAMMOGRAPHY TECHNIQUE: 2D and 3D (tomosynthesis) digital mammographic views obtained, with additional images as needed for full coverage. Current study was also evaluated with a Computer Aided Detection (CAD) system. DENSITY C. The breasts are heterogeneously dense, which may obscure small masses. IMPLANTS Breast implants present. MAMMOGRAPHY FINDINGS Bilateral: Benign-appearing calcifications noted. There are no suspicious masses, calcifications, or other findings in the breast. No significant change from comparison. IMPRESSION: * No evidence of malignancy with benign findings. RECOMMENDATIONS Bilateral * Annual screening mammography. OVERALL ASSESSMENT CATEGORY BI-RADS-2: Benign. The [employer] recommends annual screening mammography beginning at age 40 for women with average risk of breast cancer. ELECTRONICALLY SIGNED: Vania Molina M.D. on 11/20/2024 at 07:13:35 PM PT Interpreting Station ID: [id number]
== END ==
LOC: MAMMO 15:45
PROVIDERS: PCP Family Medicine; Referring Provider Family Medicine; Visit Provider Family Medicine
DX: Z12.31 Encounter for screening mammogram for malignant neoplasm of breast (principal); R92.333 Mammographic heterogeneous density, bilateral breasts; Z98.82 Breast implant status
CPT/HCPCS: 77063; 77067

== ENCOUNTER → 2025-02-11 15:27 | Outpatient (CLI) | payer MEDICARE, SELFPAY ==
[2025-02-11 17:51] LABS: TSH w/ Reflex to FT4 1.93 uIU/mL (0.47-4.68)
== END ==
PROVIDERS: PCP Family Medicine; Referring Provider Family Medicine; Visit Provider Family Medicine
DX: E03.9 Hypothyroidism, unspecified (principal)
CPT/HCPCS: 36415; 84443